=== PATIENT | female | born 1950 | race Caucasian/White ===

== ENCOUNTER 2018-11-26 12:18 | Inpatient (IN) | payer OTHER, MEDICAID ==
[~2018-11-26] VITALS: Ht 165.1 cm; Wt 85.7 kg
[2018-11-26 12:36] VITALS: BP_SYST 156
--- NOTE | 2018-11-26 12:45 | NUR ---
Patient to ER bed 04 to gown for evaluation. Side rails up. Report given to Jaylene.
--- NOTE | 2018-11-26 12:48 | NUR ---
Pt AAOx2 presents to ED via BLS from [facility] for medical clearance prior to placement to [place]. Per [facility] staff, pt has been refusing treatment and care at their facility and wishes to leave without safe plan of care. PCP Dr. Ross aware. Pt has not yet been accepted to [place]. Denies complaints at this time, but is very irritable. Skin pink dry and warm, breathing even and unlabored. Pt SaO2 88% on RA. Pt hyperverbal and states "Stop asking me if I can breathe! I'm breathing fine! Let me live my life my way!" Hx of COPD. No other injuries/complaints per pt/noted. Will continue to monitor.
--- NOTE | 2018-11-26 12:48 | NUR ---
Note undone in EDM - 11/26/18 at 1348 by [email or web address] Pt AAOx4 presents to ED via BLS from [facility] for medical clearance prior to placement to [place]. Per [facility] staff, pt has been refusing treatment and care at their facility and wishes to leave without safe plan of care. PCP Dr. Ross aware. Pt has not yet been accepted to [place]. Denies complaints at this time, but is very irritable. Skin pink dry and warm, breathing even and unlabored. Pt SaO2 88% on RA. Pt hyperverbal and states "Stop asking me if I can breathe! I'm breathing fine! Let me live my life my way!" Hx of COPD. No other injuries/complaints per pt/noted. Will continue to monitor.
[2018-11-26] MEDS ORDERED: DOCU-144 PO (13:01)
[2018-11-26] MEDS ORDERED: BENZ0.5T43 PO (13:01)
[2018-11-26] MEDS ORDERED: NOR10 PO (13:01)
[2018-11-26] MEDS ORDERED: DIA250 PO (13:01)
[2018-11-26] MEDS ORDERED: RISP0.253 PO (13:01)
--- NOTE | 2018-11-26 13:02 | NUR ---
Medication reconciliation completed with information provided by Brian Diaz. Any prior medication reconciliation on file was reviewed and corrected.
[2018-11-26 13:04] LABS: BILIRUBIN,URINE NEGATIVE (NEGATIVE); BLOOD, URINE TRACE (NEGATIVE); CLARITY/URINE CLEAR (CLEAR); COLOR,URINE YELLOW (YELLOW); GLUCOSE,URINE NEGATIVE (NEGATIVE); KETONES,URINE NEGATIVE (NEGATIVE); LEUKOCYTE ESTERASE ,URINE 3+ (NEGATIVE); NITRITE, URINE NEGATIVE (NEGATIVE); PH,URINE 5.5 (5.0-8.0); PROTEIN URINE NEGATIVE (NEGATIVE)
[2018-11-26 13:09] LABS: BACTERIA,URINE FEW /HPF (None Seen); WBC,URINE 80-100 /HPF (0-3)
[2018-11-26 13:13] LABS: BARBITURATE, URINE NEGATIVE (NEG <=200); BENZODIAZEPINE, URINE NEGATIVE (NEG <=150); CANNABINOID, URINE NEGATIVE (NEG <=50); COCAINE, URINE NEGATIVE (NEG <=150); METHAMPHETAMINES SCREEN,URINE NEGATIVE (NEG <=500); OPIATE, URINE NEGATIVE (NEG <=100); PHENCYCLIDINE SCREEN,URINE NEGATIVE (NEG <=25); UR TRICYCLIC ANTIDEPRESSANTS NEGATIVE (NEG <=300); URINE AMPHETAMINE NEGATIVE (NEG <=500); URINE METHADONE NEGATIVE (NEG <=200); URINE OXYCODONE SCREEN NEGATIVE (NEG <=100); URINE PROPOXYPHENE SCREEN NEGATIVE (NEG <=300)
[2018-11-26 13:21] LABS: BASOPHILS # (AUTO) 0.1 K/uL (0.0-0.2); BASOPHILS % (AUTO) 0.6 % (0.0-2.0); EOSINOPHILS # (AUTO) 0.2 K/uL (0.0-0.4); EOSINOPHILS % (AUTO) 1.7 % (0.0-4.0); HEMATOCRIT 43.7 % (36-48); HEMOGLOBIN 14.4 g/dL (12.0-16.0); LYMPHOCYTES # (AUTO) 2.3 K/uL (1.0-5.5); LYMPHOCYTES % (AUTO) 23.2 % (20.5-51.5); MEAN CORPUSCULAR HEMOGLOBIN 31 pg (27-31); MEAN CORPUSCULAR HGB CONC 33 % (32-36); MEAN CORPUSCULAR VOLUME 94 fL (79.0-98.0); MONOCYTES % (AUTO) 9.7 % (1.7-9.3); NEUTROPHILS # (AUTO) 6.5 K/uL (1.8-7.7); NEUTROPHILS % (AUTO) 64.8 % (40.0-70.0); PLATELET COUNT (AUTO) 268 K/uL (130-430); RED BLOOD CELL COUNT(AUTO) 4.67 MIL/uL (4.2-6.2); RED CELL DISTRIBUTION WIDTH 13.5 % (9.0-15.0)
[2018-11-26 13:34] LABS: CALCIUM 9.1 mg/dL (8.4-11.0); CHLORIDE 99 mmol/L (98-107); CREATININE 0.59 mg/dL (0.55-1.30); GLUCOSE 102 mg/dL (70-99); POTASSIUM 3.9 mmol/L (3.5-5.1); SODIUM SERUM 133 mmol/L (136-145); UREA NITROGEN, BLOOD 7 mg/dL (8-21)
[2018-11-26 13:35] LABS: ANION GAP < 3 (5-15); GFR AFRICAN AMERICAN 130 mL/min (>90)
[2018-11-26 13:40] LABS: ALANINE AMINOTRANSFERASE 25 U/L (12-78); ALBUMIN 2.8 g/dL (3.4-4.8); ASPARTATE AMINOTRANSFERASE 25 U/L (10-37); TOTAL BILIRUBIN 0.7 mg/dL (0.0-1.0)
[2018-11-26 13:41] LABS: ACETAMINOPHEN < 1 ug/mL (1-30); ALCOHOL, BLOOD < 3 mg/dL (<10)
--- NOTE | 2018-11-26 13:42 | NUR ---
received report from VALARIE Whtie. patient in bed, O2Sat at 84-85%. Patient denies SOB and states is breathing fine and does not want oxygen. Patient states needed to lay on side and is fine. Patient states smells "pot" but does not use it. Patient agitated. Will continue to monitor.
[2018-11-26 14:00] LABS: CHOLESTEROL 130 mg/dL (<200); HDL CHOLESTEROL 50 mg/dL (>55); LDL CHOLESTEROL 68 mg/dL (<100); TRIGLYCERIDES 49 mg/dL (30-150)
--- NOTE | 2018-11-26 14:35 | NUR ---
patient refused IV, blood draw and ABG. Dr. Mulligan aware.
--- NOTE | 2018-11-26 15:39 | NUR ---
ADMISSION NOTE Received patient from ER via awilda, received report from Christopher SHEPPARD. Patient admitted with diagnosis of COPD and UTI. Patient oriented to hospital routine, call light, toileting and safety-patient verbalized understanding.
--- NOTE | 2018-11-26 15:39 | NUR ---
INITIAL NOTE REPORT RECEIVED BY MARLYN. PT AWAKE, AOX2. PT BELONGINGS AT BEDSIDE. PT EDUCATED ON IMPORTANCE OF IV ACCESS, PT REFUSING IV ACCESS AT THIS TIME. DENIES ANY PAIN OR DISCOMFORT. CALL LIGHT WITHIN REACH, BED IN LOW AND LOCKED POSITION WITH BED ALARM ON.
[2018-11-26] MEDS ORDERED: risperiDONE 0.25 MG TABLET (RisperDAL) PO ONE (15:45)
[2018-11-26] MEDS ORDERED: LevALBUTEROL HCL 1.25 MG/0.5 ML *CONC.* VIAL.NEB (XOPENEX CONC.) INH PRN (15:45)
--- NOTE | 2018-11-26 15:45 | NUR ---
Patient will be admitted to care of Dr. Ross. Admitted to med/surg unit. Will go to room 121b. Belongings list completed. Summary report printed. Report will be given at bedside.
--- NOTE | 2018-11-26 15:48 | NUR ---
Care endorsed and report given to VALARIE Kingston in med/surg. All questions answered.
[2018-11-26 15:54] VITALS: BP_SYST 148
--- NOTE | 2018-11-26 16:06 | NUR ---
CONSULTATION PAGED REASON FOR CONSULTATION:SCHIZOPHERNIA WAS CONSULT CALLED?Y PERSON WHO WAS NOTIFIED:JESSICA CONSULTING PHYSICIAN:NILES RAIN RELIGION INSTRUCTOR SPECIALTY:PSYCH RELIGION INSTRUCTOR PHONE NUMBER:[phone] REQUESTING PHYSICIAN:COTY FORD
[2018-11-26 16:33] VITALS: BP_SYST 148
--- NOTE | 2018-11-26 17:39 | NUR ---
RN ROUNDS PT RESTING, NO ACUTE DISTRESS NOTED. BREATHING EVEN AND UNLABORED.
--- NOTE | 2018-11-26 19:27 | NUR ---
CLOSING NOTE PT RESTING IN BED. NO ACUTE DISTRESS NOTED. BREATHING EVEN AND UNLABORED. CALL LIGHT WITHIN REACH, BED IN LOW AND LOCKED POSITION WITH BED ALARM ON. WILL CONTINUE TO MONITOR UNTIL PATIENT CARE IS ENDORSED TO PROGRAM PRODUCTION SPECIALIST RN.
--- NOTE | 2018-11-26 19:30 | NUR ---
Opening Notes Patient sitting at bedside. AOx2 and able to verbalize needs. Patient refusing IV insertion. Ambulatory with a steady gait to the bathroom. Patient periodically confused. Oriented the patient to the room and use of the call light. Refusing bed alarm. Call light placed within reach. Will monitor on rounds.
[2018-11-26 20:00] VITALS: BP_SYST 136
[2018-11-26] MEDS: BENZTROPINE MESYLATE 1 MG TABLET PO SCH (20:45)
[2018-11-26] MEDS: SULFAMETHOXAZOLE/TRIMETHOPR DS 1 TABLET PO SCH (20:45)
[2018-11-26] MEDS: ENOXAPARIN SODIUM 40 MG/0.4 ML SYRINGE SUBCUT SCH (20:46)
[2018-11-26] MEDS: LevALBUTEROL HCL 1.25 MG/0.5 ML *CONC.* VIAL.NEB (XOPENEX CONC.) INH SCH (23:00)
--- NOTE | 2018-11-26 23:15 | NUR ---
Patient is ambulatory in the room and returning to sit at the edge of the bed. Brought patient some crackers for snack. Very irritable and wants to be left alone. Will cont to monitor for any change in condition.
[2018-11-27 01:47] VITALS: BP_SYST 123
--- NOTE | 2018-11-27 02:17 | NUR ---
Patient resting in bed. No appearance of pain or difficulty breathing.
--- NOTE | 2018-11-27 04:13 | NUR ---
No change in condition. Patient in bed resting. Call light within reach.
--- NOTE | 2018-11-27 04:14 | NUR ---
Patient resting in bed. No complaints of pain or respiratory distress.
--- NOTE | 2018-11-27 06:35 | NUR ---
Closing Notes Patient in bed resting comfortably. No pain or respiratory distress. Call light within reach. All needs have been met and safety precautions in place. Will endorse care to oncoming shift.
[2018-11-27] MEDS: LevALBUTEROL HCL 1.25 MG/0.5 ML *CONC.* VIAL.NEB (XOPENEX CONC.) INH SCH ×3 (07:00→23:50)
[2018-11-27 07:40] VITALS: BP_SYST 131
--- NOTE | 2018-11-27 08:00 | NUR ---
PT AWAKE, AOX2. CONFUSED, BUT ABLE TO VERBALIZED BASIC NEEDS. DENIES ANY PAIN OR DISCOMFORT. REFUSED IV INSERTION. CALL LIGHT WITHIN REACH, BED LOCKED AT THE LOWEST POSITION WITH BED ALARM ON. WILL CONTINUE TO MONITOR.
[2018-11-27] MEDS: risperiDONE 0.25 MG TABLET (RisperDAL) PO SCH (08:20)
[2018-11-27] MEDS: acetaZOLAMIDE 250 MG TABLET (DIAMOX) PO SCH ×2 (08:20→08:27)
[2018-11-27] MEDS: amLODIPine BESYLATE 10 MG TABLET PO SCH ×2 (08:22→08:27)
[2018-11-27] MEDS: SULFAMETHOXAZOLE/TRIMETHOPR DS 1 TABLET PO SCH ×2 (08:22→21:00)
[2018-11-27] MEDS: BENZTROPINE MESYLATE 1 MG TABLET PO SCH ×2 (08:22→21:00)
[2018-11-27] MEDS: DOCUSATE SODIUM 100 MG CAPSULE PO SCH (08:22)
--- NOTE | 2018-11-27 10:31 | NUR ---
Nutrition Update Tommy Scale 16 noted. Pt admitted for UTI and COPD. Diet: regular BMI: 31.6 kg/m2 RD to follow per nutrition care standards.
--- NOTE | 2018-11-27 11:31 | NUR ---
PATIENT IS SEEN WALKING TO THE BATHROOM. NO SIGNS OF DISTRESS NOTED.
[2018-11-27 12:27] VITALS: BP_SYST 127
--- NOTE | 2018-11-27 13:48 | NUR ---
PATIENT IS RESTING, TOLERATING WITHOUT DISTRESS.
--- NOTE | 2018-11-27 14:44 | NUR ---
PT AWAKE, AOX2. CONFUSED, BUT ABLE TO VERBALIZED BASIC NEEDS. DENIES ANY PAIN OR DISCOMFORT. REFUSED IV INSERTION. CALL LIGHT WITHIN REACH, BED IN LOW AND LOCKED POSITION WITH BED ALARM ON. Addendum: 11/27/18 at 1446 by Dario Ann RN WRONG PATIENT.
--- NOTE | 2018-11-27 14:44 | NUR ---
PT AWAKE, AOX2.PT BELONGINGS AT BEDSIDE. PT EDUCATED ON IMPORTANCE OF IV ACCESS, PT REFUSING IV ACCESS AT THIS TIME. DENIES ANY PAIN OR DISCOMFORT. CALL LIGHT WITHIN REACH, BED IN LOW AND LOCKED POSITION WITH BED ALARM ON. Addendum: 11/27/18 at 1444 by Dario Ann RN WRONG PATIENT.
--- NOTE | 2018-11-27 16:16 | NUR ---
PATIENT IS RESTING IN BED, NO SIGNS OF DISTRESS NOTED.
[2018-11-27 16:24] VITALS: BP_SYST 133
--- NOTE | 2018-11-27 16:34 | NUR ---
Dietitian Recommendations * Recommend continuing regular diet * Encourage increase PO intakes LP, RD Please refer to Nutrition Assessment for details. Addendum: 11/27/18 at [address] Amended: Links added.
--- NOTE | 2018-11-27 18:16 | NUR ---
PATIENT IS EATING DINNER, TOLERATED WITHOUT DISTRESS.
[2018-11-27 19:19] VITALS: BP_SYST 133
--- NOTE | 2018-11-27 19:30 | NUR ---
initial notes: pt is finish eating dinner, stable. sitting on edge of bed. no pain. no iv access. pt is refusing to have iv access according to day rn. needs attended, call light in reach. low bed position. will follow-up.
--- NOTE | 2018-11-27 20:30 | NUR ---
pt refused all her medication tonight, pt stated she took all her medication this morning and she don't want to take it again.
[2018-11-27] MEDS: ENOXAPARIN SODIUM 40 MG/0.4 ML SYRINGE SUBCUT SCH (21:00)
--- NOTE | 2018-11-27 21:00 | NUR ---
pt ambulate to bathroom, steady gait, back to bed , needs attended.
--- NOTE | 2018-11-27 22:00 | NUR ---
pt is in bed, watching tv. no pain. no sob. stable. needs attended.
[2018-11-27 23:38] VITALS: BP_SYST 159
--- NOTE | 2018-11-28 00:15 | NUR ---
still awake, watching tv. ambulate to bathroom, steady gait. back to bed, no pain. needs attended.
--- NOTE | 2018-11-28 02:50 | NUR ---
sleeping, comfortable to her side, non labored breathing, stable.
--- NOTE | 2018-11-28 04:18 | NUR ---
sleeping, comfortable, non labored breathing, stable. no pain. will follow-up.
--- NOTE | 2018-11-28 06:18 | NUR ---
awake, alert, no pain, ambulate to bathroom, steady gait, no sob. stable.
[2018-11-28] MEDS: LevALBUTEROL HCL 1.25 MG/0.5 ML *CONC.* VIAL.NEB (XOPENEX CONC.) INH SCH ×2 (07:00→23:00)
--- NOTE | 2018-11-28 07:26 | NUR ---
closing: pt is on bed, alert, awake, no pain. stable the whole shift. ambulatory with steady gait. needs attended the whole shift. bedside report given to am rn.
--- NOTE | 2018-11-28 07:30 | NUR ---
Opening Notes Received patient sitting comfortably in bed. Alert, awake and verbally responsive. Denies any pain or discomfort at this time. Respiration even and unlabored. Discussed plan of care, patient verbalized understanding. Call light within the reach. Will continue to monitor.
[2018-11-28] MEDS: BENZTROPINE MESYLATE 1 MG TABLET PO SCH ×2 (08:37→21:00)
[2018-11-28] MEDS: acetaZOLAMIDE 250 MG TABLET (DIAMOX) PO SCH ×2 (08:37→08:43)
[2018-11-28] MEDS: DOCUSATE SODIUM 100 MG CAPSULE PO SCH ×2 (08:37→08:43)
[2018-11-28] MEDS: SULFAMETHOXAZOLE/TRIMETHOPR DS 1 TABLET PO SCH ×2 (08:37→21:00)
[2018-11-28] MEDS: risperiDONE 0.25 MG TABLET (RisperDAL) PO SCH (08:37)
[2018-11-28] MEDS: amLODIPine BESYLATE 10 MG TABLET PO SCH (08:38)
--- NOTE | 2018-11-28 08:40 | NUR ---
docusate and diamox refused Patient refused to take Docusate and Diamox, explained risks and benefits patient still refused.
[2018-11-28 09:08] VITALS: BP_SYST 121
--- NOTE | 2018-11-28 09:55 | NUR ---
RN ROUNDS Patient resting well, watching tv. Alert, awake and verbally responsive. Denies any pain or discomfort at this time. Call light within the reach.
--- NOTE | 2018-11-28 11:50 | NUR ---
Rn ROUNDS Patient sitting in her bed noted talking to herself, asked patient who she is talking to, gets agitated when asked who is she speaking to, denies any pain or discomfort at this time. Respiration even and unlabored. Call light within the reach.
--- NOTE | 2018-11-28 12:54 | NUR ---
Wire Fence Erector: Met with pt. re. referral GURDEEP SURVEY INTERVIEWER met with pt. who was sitting on the edge of her bed. Rn. was present. Pt. was speaking however she was not clear 100% of the time. Pt was able to participate in this interview. Pt. confirmed that she was from [facility] and wanted to return upon discharge. She stated she had been there for about 2 years. When SURVEY INTERVIEWER confirmed her emergency contact as stated in the facesheet, "Damion Vela " (Greg. JanesrJudi) pt. became very upset and stated, " No ! NO contact! No!" SURVEY INTERVIEWER told her she would fix the contact sheet. PT. went on to say she had been in a foster home. But when asked, she did not have any other contacts to list. Pt. confirmed that she was Dx with Schizophrenia eversince she was younger. She stated she is no longer taking medication for this Dx. In the file, SURVEY INTERVIEWER read Dr. Avery was consulted on this pt. as well as one of the meds pt. was taking was a psycotropic med, Risperidane. SURVEY INTERVIEWER will remain available as needed. Addendum: 11/28/18 at 1316 by Sierra Solis SURVEY INTERVIEWER Wire Fence Erector: Follow up SURVEY INTERVIEWER called Brian Diaz and spoke to web content coordinator, Rashmi who confirmed pt. is seeing a psyc. Dr. Armstrong for Schizophrenia and is indeed taking Risperidane. Rashmi also stated pt. is just recently talking about leaving [facility],but when they try to discuss other locations, pt. does not want to discuss further. Rashmi Faith stated pt. came from a B/C and Mirian runs it. SURVEY INTERVIEWER stated she will change this name as a contact as it upset pt. SURVEY INTERVIEWER will remain available as needed.
--- NOTE | 2018-11-28 13:27 | NUR ---
RN ROUNDS Patient lying comfortably in her bed with respiration even and unlabored. Remain to be alert, awake and verbally responsive. Denies any pain or discomfort at this time. Call light within easy reach.
--- NOTE | 2018-11-28 13:45 | NUR ---
Dr. Ross Rounds Seen and examined by MD, will follow-up for any new orders.
--- NOTE | 2018-11-28 15:29 | NUR ---
RN ROUNDS Patient lying comfortably in bed, resting. Denies any pain or discomfort at this time. Call light within the reach.
[2018-11-28 16:28] VITALS: BP_SYST 126
--- NOTE | 2018-11-28 17:50 | NUR ---
Eating Dinner Patient able to feed herself independently with tray set-up, able to tolerate diet. Denies any pain or discomfort. Will continue to monitor.
--- NOTE | 2018-11-28 18:52 | NUR ---
Closing Notes Patient lying comfortably in her bed. Remain to be alert, awake and verbally responsive. Respiration even and unlabored. Denies any pain or discomfort at this time. Bed at lowest position, bed alarm on. Call light within easy reach. Will endorse to the next shift.
--- NOTE | 2018-11-28 19:45 | NUR ---
initial note Received sitting at side of bed awake, alert & oriented to name & date. No apparent distress noted. Denies pain or discomfort. Vital signs stable. No IV access. MD aware. Able to ambulate without assist. Instructed on use of call light & to notify staff if in need of assistance. Verbalized understanding. Bed in low, locked position.
[2018-11-28 20:00] VITALS: BP_SYST 128
[2018-11-28] MEDS: ENOXAPARIN SODIUM 40 MG/0.4 ML SYRINGE SUBCUT SCH (21:00)
[2018-11-29 00:15] VITALS: BP_SYST 126
--- NOTE | 2018-11-29 01:49 | NUR ---
Resting with eyes closed, easily aroused. No respiratory distress noted. No c/o pain or discomfort. Call light within reach.
--- NOTE | 2018-11-29 01:50 | NUR ---
Resting in bed with eyes closed easily aroused. No c/o pain or discomfort. Respirations even and unlabored. Call light within reach.
--- NOTE | 2018-11-29 05:20 | NUR ---
CONSULTATION PAGED/CALLED Reason for Consultation: SCHIZOPHRENIA Person Who was Notified: MARTI Consulting Physician: DR. MILAN Collection Development Librarian Specialty: PSYCH Ordering Physician: DR. DAVID
--- NOTE | 2018-11-29 07:23 | NUR ---
Closing note Resting in bed with eyes closed, easily aroused. No c/o pain or discomfort. Respirations even and unlabored. All needs attended to. Will give report to oncoming shift RN.
--- NOTE | 2018-11-29 07:36 | NUR ---
Opening Notes SBAR report received from restaurant shift leader, patient received lying comfortably in bed, eyes closed, no moaning or grimacing noted. Respiration even and unlabored. Call light within the reach. Bed alarm on. Bed at lowest position. Will continue to monitor.
[2018-11-29 08:15] VITALS: BP_SYST 157
[2018-11-29] MEDS: risperiDONE 0.25 MG TABLET (RisperDAL) PO SCH (08:35)
[2018-11-29] MEDS: SULFAMETHOXAZOLE/TRIMETHOPR DS 1 TABLET PO SCH ×2 (08:35→21:18)
[2018-11-29] MEDS: BENZTROPINE MESYLATE 1 MG TABLET PO SCH ×2 (08:35→21:18)
[2018-11-29] MEDS: acetaZOLAMIDE 250 MG TABLET (DIAMOX) PO SCH (08:36)
[2018-11-29] MEDS: amLODIPine BESYLATE 10 MG TABLET PO SCH ×2 (08:36→08:39)
[2018-11-29] MEDS: DOCUSATE SODIUM 100 MG CAPSULE PO SCH (08:36)
--- NOTE | 2018-11-29 09:00 | NUR ---
Refused Diamox, Norvasc and DSS Patient educated on drug usage and its potential side effects, patient verbalized understanding, medications given as ordered, well tolerated, but refused to take Diamox, Norvasc and DSS, explained risks and benefits. Call light within the reach.
--- NOTE | 2018-11-29 11:31 | NUR ---
RN ROUNDS Patient resting well in bed, alert, awake and verbally responsive. Denies any pain or discomfort at this time. Call light within the reach.
--- NOTE | 2018-11-29 11:38 | NUR ---
F/U CONSULT PSYCH SCHIZOPHRENIA DR MILAN [phone] S/W [place] OFFICE
[2018-11-29 12:17] VITALS: BP_SYST 134
--- NOTE | 2018-11-29 13:30 | NUR ---
RN ROUNDS Patient currently lying comfortably in her bed, respiration even and unlabored. Alert, awake and verbally responsive. Denies any pain or discomfort at this time. Call light within the reach.
--- NOTE | 2018-11-29 15:12 | NUR ---
RN ROUNDS Remain to be alert, awake and verbally responsive. Denies any pain or discomfort. Call light within the reach.
[2018-11-29 16:05] VITALS: BP_SYST 127
--- NOTE | 2018-11-29 16:21 | NUR ---
Social Service/Discharge Planning: BRASS AND WIND INSTRUMENT REPAIRER has received order for dc to [facility], pt has pending psychiatric evaluation. BRASS AND WIND INSTRUMENT REPAIRER has contacted CM Director to discuss transfer to [facility] without psychiatric evaluation. BRASS AND WIND INSTRUMENT REPAIRER will await input from CM Director. BRASS AND WIND INSTRUMENT REPAIRER alerted pt's nurse that pt has psychiatric consult and that pt has not been seen by psychiatrist. Pt has been accepted at [facility] room 58A.
--- NOTE | 2018-11-29 17:33 | NUR ---
RN ROUNDS Patient denies any pain or discomfort. Remain to be alert, awake and verbally responsive. Call light within the reach.
--- NOTE | 2018-11-29 18:27 | NUR ---
With discharge order to transfer to [facility] in [place] patient has room assigned , 51:50 that was documented on 11[facility] by Dr[facility] Zhao and still valid till 11/29/2018; nursing managing supervisor Sera spoke to home health care social worker Krystal to verify if we can transfer with that documentation and said yes, called [place] [facility] spoke to Jhony and said bed is available but we cannot transfer the patient until bed rental is pick in the room by the company, Dr. Apodacaium was informed by the nursing managing supervisor Angela.
--- NOTE | 2018-11-29 19:01 | NUR ---
Closing Notes Patient remain to be alert, awake and verbally responsive. Denies any pain or discomfort at this time. Respiration even and unlabored. Call light within the reach. Will endorse to the next shift.
--- NOTE | 2018-11-29 19:39 | NUR ---
Report given to [facility] Called and spoke to RN Lazaro, report given regarding patient.
[2018-11-29 19:53] VITALS: BP_SYST 159
--- NOTE | 2018-11-29 20:00 | NUR ---
CALLED [facility]: CALLED AND TALKED WITH YANNA ON [phone] , INFORMED HER THAT PTS 5150WAS SIGNED ON 11/26/18 AT 1050 AM , AND ITS TODAY MORNING , YANNA SAID ITS OK TO TRANSFER , ONCE PT REACHED [facility] THEY WILL MAKE NEW ONE.
--- NOTE | 2018-11-29 20:30 | NUR ---
[facility]ELINA [facility] CALLED : NABEEL DIRECTOR OF [facility] CALLED MAIN CHARGE NURSE AND REQUESTED TO CALL [facility] CRU[facility] AND REQUEST TO FAX PROGRESS NOTE FROM DR MILAN , CALLED CELINA CRUZ AND TALKED WITH EKTA SHEPPARD , PER RN MEDICAL RECORD IS CLOSED AND IT WILL BE OPEN ONLY TOMORROW MORNING AT 8:30 ;AND RN ASKED TO CALL MEDICAL RECORD AT THAT TIME .NOTIFIED MAIN CHARGE NURSE
[2018-11-29 21:00] VITALS: BP_SYST 129
--- NOTE | 2018-11-29 21:00 | NUR ---
DR DAVID CALLED : DR DAVID CALLED THE UNIT TO GET UPDATE ON THE TRANSFER , STATED HE IS WAITING FOR THE PT AT [facility] , NOTIFIED THAT AMBULANCE IS ONLY AVAILABLE BY 2214 , NOTIFIED THAT 5150 IS TO DAY MORNING , STATED HE TALKED WITH DR MILAN AND STILL NOT , OKAY TO TRANSFER PT WITH THE SAME 5150 .
--- NOTE | 2018-11-29 21:20 | NUR ---
FAMILY CALLED : CALLED OWEN DUONG SR ON [phone] , NO ONE ANSWERED CALL , LEFT MESSAGE TO CALL BACK AT [phone] , CALLED OWEN DUONG JR ON [phone] , TALKED WITH HIM INFORMED RHODA WHITTEN THAT PT WILL BE TRANSFERRING TO [facility] PER ORDER . AMBULANCE WILL BE HERE TO ROUTING EQUIPMENT TENDER BY 2215 PM . 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 PRIMARY RN NOTIFIED
[2018-11-29] MEDS: ENOXAPARIN SODIUM 40 MG/0.4 ML SYRINGE SUBCUT SCH (21:21)
--- NOTE | 2018-11-29 21:47 | NUR ---
VITAL SIGNS : TRIED TO DO VITALS SIGNS AGAIN , PT REFUSED TO CHECK STATED" I AM FINE " INFORMED HER THAT BEFORE SHE IS LEAVING RN HAS TO MAKE SURE THAT HER BP AND TEMP ARE NORMAL PT STATED "I AM FIVE TIMES NORMAL THAN ANYONE, I DON'T WANT ANYONE TO CHECK MY BP ". PT REFUSED TO CHECK THE VITALS SIGNS AT THIS TIME .
--- NOTE | 2018-11-29 22:48 | NUR ---
PT FOR DISCHARGE TO THE [facility]. PT REFUSED FOR VITAL SIGN TO BE TAKEN .PT IS WEARING OWN.NO IV ACCESS .REGULAR PANT AND BLOUSE. REPORT GIVEN TO THE ANBULANCE MERCHANDISE FLOW ASSOCIATE S. I D BAND REMOVED. TEMPERARY ID PUT ON PT . ALL BELONGINGS SEND WITH THE PATIENT .DISCHARGE INSTRUCTION AND PAPERWORKS GIVEN PARAMEDICS.PT REFUED TO SIGN THE DISCHARGE INSTRUCTION PT HAVE PSYCHOSIS. PT STABLE CONDITION . PT WHEELED OUT VIA GURNEY.
--- NOTE | 2018-11-30 16:20 | NUR ---
Social Service Note: WEB SOFTWARE ENGINEER reviewed discharge disposition, upon review, WEB SOFTWARE ENGINEER found that pt went to psych facility upon discharge. WEB SOFTWARE ENGINEER received call from power house control room operator on 11/29/18-180, WEB SOFTWARE ENGINEER advised that pt needed a valid 5150 and psychiatric evaluation to be transferred to psychiatric unit. WEB SOFTWARE ENGINEER alerted CM Director of phone call with power house control room operator.
== END 2018-11-29 22:48 | DRG 191 ==
LOC: SED 12:18 → SMU 14:50
PROVIDERS: ADMIT Family Medicine; ATTEND Family Medicine
DX: J44.1 Chronic obstructive pulmonary disease with (acute) exacerbation (principal); N39.0 Urinary tract infection, site not specified; E44.0 Moderate protein-calorie malnutrition; F20.9 Schizophrenia, unspecified; F17.200 Nicotine dependence, unspecified, uncomplicated; I10 Essential (primary) hypertension; G20 Parkinson's disease; F31.9 Bipolar disorder, unspecified; M19.90 Unspecified osteoarthritis, unspecified site; Z88.0 Allergy status to penicillin; Z68.31 Body mass index [BMI] 31.0-31.9, adult; Z79.899 Other long term (current) drug therapy
CPT/HCPCS: 36415; 71045; 80053; 80061; 80307; 81000-TC; 83036; 85025; 85379; 87081; 87086; 99285; G0480; G0481; G0482; J1650; J7612

== ENCOUNTER 2018-12-08 01:36 | Inpatient (IN) | payer OTHER, MEDICAID ==
[~2018-12-08] VITALS: Ht 165.1 cm; Wt 84.8 kg
[2018-12-08] VITALS (8 sets, daily range): BP systolic 129–154
[~2018-12-08 01:36] MED LIST: BENZ0.5T43 PO; DIA250 PO; DOCU-144 PO; NOR10 PO; RISP0.253 PO
--- NOTE | 2018-12-08 02:00 | NUR ---
Pt BIB BLS from [facility], accompanied accompanied by Undercollar MakerSheriff Don Martinez, on a 5150 r/t endangerment to herself. Per 5150, pt has been sitting outside in the cold since 7am yesterday and has been refusing to take her medications. As written on the 5150, pt believes she is an orphan and [facility] to go back to the orphanage. Pt arrives AAOx2 with a calm and cooperative demeanor, denies SI/HI, denies A/V hallucinations. Pt talkative with scattered thought process. Patient placed on suicide precautions. Patient placed in room within close proximity to nurses' station for closer observation and monitoring. All clothing removed, placed in hospital gown. Metal detector wand used to further screen patient of any potential hazardous belongings. All belongings inventoried, placed in bags and removed from room. Cabinets locked. BP and pulse oximeter cords, and medical transcription editor leads removed.
--- NOTE | 2018-12-08 02:00 | NUR ---
Patient to ER bed 5 to gown for evaluation. Side rails up.
--- NOTE | 2018-12-08 02:08 | NUR ---
Dr. Thacker at bedside.
--- NOTE | 2018-12-08 02:14 | NUR ---
Security at bedside for wanding.
--- NOTE | 2018-12-08 02:30 | NUR ---
spikemaking supervisor notified of 5150 and optical designer requested.
--- NOTE | 2018-12-08 02:40 | NUR ---
Lab at bedside.
[2018-12-08 02:47] LABS: BILIRUBIN,URINE NEGATIVE (NEGATIVE); CLARITY/URINE CLEAR (CLEAR); COLOR,URINE YELLOW (YELLOW); GLUCOSE,URINE NEGATIVE (NEGATIVE); KETONES,URINE NEGATIVE (NEGATIVE); LEUKOCYTE ESTERASE ,URINE 1+ (NEGATIVE); NITRITE, URINE NEGATIVE (NEGATIVE); PROTEIN URINE TRACE (NEGATIVE)
[2018-12-08 02:51] LABS: BLOOD, URINE TRACE (NEGATIVE)
[2018-12-08 02:52] LABS: BASOPHILS % (AUTO) 0.2 % (0.0-2.0); EOSINOPHILS # (AUTO) 0.1 K/uL (0.0-0.4); EOSINOPHILS % (AUTO) 0.9 % (0.0-4.0); HEMOGLOBIN 15.6 g/dL (12.0-16.0); LYMPHOCYTES # (AUTO) 1.7 K/uL (1.0-5.5); LYMPHOCYTES % (AUTO) 14.5 % (20.5-51.5); MEAN CORPUSCULAR HEMOGLOBIN 31 pg (27-31); MEAN CORPUSCULAR HGB CONC 33 % (32-36); MEAN CORPUSCULAR VOLUME 94 fL (79.0-98.0); MONOCYTES # (AUTO) 0.9 K/uL (0.0-1.0); MONOCYTES % (AUTO) 7.6 % (1.7-9.3); NEUTROPHILS # (AUTO) 9.3 K/uL (1.8-7.7); NEUTROPHILS % (AUTO) 76.8 % (40.0-70.0); PLATELET COUNT (AUTO) 308 K/uL (130-430); RED BLOOD CELL COUNT(AUTO) 4.98 MIL/uL (4.2-6.2); RED CELL DISTRIBUTION WIDTH 13.4 % (9.0-15.0); WHITE BLOOD COUNT (AUTO) 12.1 K/uL (4.8-10.8)
[2018-12-08 03:16] LABS: PROTHROMBIN TIME 9.9 SECS (9.5-12.5)
[2018-12-08 03:17] LABS: BARBITURATE, URINE NEGATIVE (NEG <=200); BENZODIAZEPINE, URINE NEGATIVE (NEG <=150); CANNABINOID, URINE NEGATIVE (NEG <=50); COCAINE, URINE NEGATIVE (NEG <=150); METHAMPHETAMINES SCREEN,URINE NEGATIVE (NEG <=500); OPIATE, URINE NEGATIVE (NEG <=100); PHENCYCLIDINE SCREEN,URINE NEGATIVE (NEG <=25); UR TRICYCLIC ANTIDEPRESSANTS NEGATIVE (NEG <=300); URINE AMPHETAMINE NEGATIVE (NEG <=500); URINE METHADONE NEGATIVE (NEG <=200); URINE OXYCODONE SCREEN NEGATIVE (NEG <=100); URINE PROPOXYPHENE SCREEN NEGATIVE (NEG <=300)
[2018-12-08 03:19] LABS: CREATININE 0.59 mg/dL (0.55-1.30); POTASSIUM 3.7 mmol/L (3.5-5.1)
[2018-12-08 03:30] LABS: BACTERIA,URINE MODERATE /HPF (None Seen)
[2018-12-08 03:31] LABS: HYALINE CASTS, URINE 0-10 /LPF (None Seen)
[2018-12-08 03:33] LABS: ALBUMIN 3.3 g/dL (3.4-4.8); THYROID STIMULATING HORMONE 1.5 uIu/mL (0.34-4.82); TOTAL BILIRUBIN 0.4 mg/dL (0.0-1.0)
[2018-12-08] MEDS ORDERED: LEVOFLOXACIN 500 MG TABLET PO ONE ×2 (03:45→04:45)
[2018-12-08] MEDS ORDERED: ZOLP5TAB2 PO (03:46)
[2018-12-08] MEDS ORDERED: NACL 0.9% 1,000 ML IV ONE (03:46)
[2018-12-08] MEDS ORDERED: DOCU-144 PO (03:49)
[2018-12-08] MEDS ORDERED: cefTRIAXone 1 GM IVPB PREMIX 50 ML IV ONE (04:00)
--- NOTE | 2018-12-08 04:00 | NUR ---
Informed pt that ER MD ordered IVFs and an antibiotic to treat her UTI. Pt becomes aggitated and refuses IV stating, "I have the right to refuse." Dr. Thacker notified.
--- NOTE | 2018-12-08 04:10 | NUR ---
Pt allows lab to perform venipuncture for blood Cx and Lactic acid, but continues to refuse IV.
--- NOTE | 2018-12-08 04:26 | NUR ---
Patient will be admitted to care of Dr. Ross. Admitted to Med/Surg unit. Will go to room 104A. Summary report printed. Report will be given at bedside.
--- NOTE | 2018-12-08 04:48 | NUR ---
ADMISSION: The patient, JALIL CARDONA, 68 y/o, F admitted by COTY DAVID MD, was given written information regarding hospital policies, unit procedures and contact persons. Ashvin, primary RN at bedside.
[2018-12-08] MEDS ORDERED: LEVOFLOXACIN 500 MG TABLET ONE (04:50)
--- NOTE | 2018-12-08 05:00 | NUR ---
PATIENT REFUSE IV INSERTION DR FRANKIE AMANDA IS AWARE .
--- NOTE | 2018-12-08 05:01 | NUR ---
ASSIST PATIENT OUT OF BED TO REST ROOM Ambulates with steady GAIT , D/O is @ the bedside for safety .
--- NOTE | 2018-12-08 05:02 | NUR ---
MRSA Collected & sent to lab .
--- NOTE | 2018-12-08 05:29 | NUR ---
CONSULTATION PAGED/CALLED Reason for Consultation: SCHIZOPHRENIC, BIPOLAR, SELF-HARM Person Who was Notified: MARTI Consulting Physician: DR. MILAN Angle Bender Specialty: PSYCH Ordering Physician: DR. DAVID
--- NOTE | 2018-12-08 07:45 | NUR ---
INITIAL NOTE BEDSIDE SBAR REPORT RECEIVED BY BUSINESS SERVICES CLERK RN. PT SITTING AT EDGE OF BED, DENIES ANY PAIN OR DISCOMFORT. PT REFUSING IV ACCESS AT THIS TIME, IS AWARE. CALL LIGHT WITHIN REACH, BED IN LOW AND LOCKED POSITION WITH BED ALARM ON. PT IS 5150.
--- NOTE | 2018-12-08 09:30 | NUR ---
RN ROUNDS PT RESTING IN BED, NO ACUTE DISTRESS NOTED, BREATHING EVEN AND UNLABORED.
--- NOTE | 2018-12-08 11:38 | NUR ---
RN ROUNDS ASSISTED PT TO RESTROOM, STEADY GAIT. PT PERFORMING ORAL HYGIENE. DENIES ANY DIZZINESS, OR DISCOMFORT. WILL CONTINUE TO MONITOR.
--- NOTE | 2018-12-08 12:35 | NUR ---
DR. FRANKIE AMANDA AT BEDSIDE EXAMINING PATIENT. INFORMED MD OF NEED OF PTS MED REC. MD TO CONTINUE CURRENT TREATMENT.
[2018-12-08] MEDS ORDERED: ZOLPIDEM TARTRATE 5 MG TABLET PO PRN (13:00)
[2018-12-08] MEDS ORDERED: LevALBUTEROL HCL 1.25 MG/0.5 ML *CONC.* VIAL.NEB (XOPENEX CONC.) INH PRN (13:00)
--- NOTE | 2018-12-08 13:30 | NUR ---
RN ROUNDS PT SITTING AT EDGE OF BED EATING LUNCH. PT DENIES ANY SOB, OR DISCOMFORT AT THIS TIME. PT ON ROOM AIR AND TOLERATING WELL.
[2018-12-08] MEDS: LevALBUTEROL HCL 1.25 MG/0.5 ML *CONC.* VIAL.NEB (XOPENEX CONC.) INH SCH (15:00)
--- NOTE | 2018-12-08 15:35 | NUR ---
REFUSED BREATHING TX EDUCATED PT ON USES AND PURPOSE OF BREATHING TREATMENT. PT REFUSING TREATMENT AT THIS TIME. PT SAYS SHE DOES NOT NEED IT. REINFORCED EDUCATION AND INFORMED PATIENT THAT TREATMENT IS AVAILABLE UPON HER REQUEST.
--- NOTE | 2018-12-08 17:49 | NUR ---
RN ROUNDS PT SITTING AT EDGE OF BED EATING DINNER. DENIES ANY SOB OR DISCOMFORT AT THIS TIME. PT TOLERATING WELL ON ROOM AIR.
--- NOTE | 2018-12-08 19:04 | NUR ---
CLOSING NOTE ASSISTED PT TO RESTROOM, STEADY GAIT. PT STILL REFUSING IV ACCESS. PT ON ROOM AIR TOLERATING WELL. DENIES ANY N/V/DIZZ OR DISCOMFORT. CALL LIGHT WITHIN REACH, BED IN LOW AND LOCKED POSITION WITH BED ALARM ON. WILL CONTINUE TO MONITOR UNTIL PT CARE IS ENDORSED TO SPORTS MANAGEMENT PROFESSOR RN. Addendum: 12/08/18 at 1906 by Aleisha Hubbard RN SAFETY PRECAUTIONS IN PLACE, PT REMAINS 5150.
--- NOTE | 2018-12-08 20:00 | NUR ---
RECIEVED REPORT, A/O/X/2-3, RESPIRATIONS EVEN AND UNLABORED, ROOM AIR,AMBULATES TO RESTROOM INDEPENDENTLY, VOIDING CLEAR YELLOW URINE, TOLERATED HS SNACK 100%, MD AWARE OF PATIENT NOT HAVING IV ACCESSIBILITY, PATIENT STATES SHE DOES NOT WANT TO BE STUCK, SKIN INTACT, DENIES PAIN, RESTING QUIETLY IN BED , WILL CONTINUE TO MONITOR,
[2018-12-08] MEDS: BENZTROPINE MESYLATE 1 MG TABLET PO SCH (21:34)
[2018-12-08] MEDS: risperiDONE 0.25 MG TABLET (RisperDAL) PO SCH (21:35)
--- NOTE | 2018-12-09 | NUR ---
RN ROUNDS RESTING QUIETLY IN BED WITH EYES CLOSED, EASILY AROUSED, AMBULATED TO RESTROOM, GAIT SLOW BUT STEADY, DENIES PAIN
[2018-12-09 00:46] VITALS: BP_SYST 118
--- NOTE | 2018-12-09 04:00 | NUR ---
RN ROUNDS AMBULATED TO RESTROOM,VOIDING CLEAR YELLOW URINE, DENIES PAIN, TOLERATING PO FLUIDS WELL
[2018-12-09 05:22] VITALS: BP_SYST 135
--- NOTE | 2018-12-09 07:00 | NUR ---
CLOSING NOTE UP @ BEDSIDE DOING AM CARE, CHEERFUL AND COOPERATIVE
--- NOTE | 2018-12-09 07:30 | NUR ---
INITIAL NOTE BEDSIDE SBAR REPORT RECEIVED BY SOUS CHEF RN. PT RESTING IN BED, NO ACUTE DISTRESS NOTED, BREATHING EVEN AND UNLABORED. NO IV ACCESS, PT STILL REFUSING, MD AWARE. PT REMAINS ON 5150. CALL LIGHT WITHIN REACH, BED IN LOW AND LOCKED POSITION WITH BED ALARM ON.
[2018-12-09 08:00] VITALS: BP_SYST 115
[2018-12-09] MEDS: ENOXAPARIN SODIUM 40 MG/0.4 ML SYRINGE SUBCUT SCH (09:00)
[2018-12-09] MEDS: DOCUSATE SODIUM 100 MG CAPSULE PO SCH ×2 (09:00→09:50)
--- NOTE | 2018-12-09 09:10 | NUR ---
MADE A F/U CALL TO PSYCH MD DR MILAN,.. SPOKE TO CONCHIS.
--- NOTE | 2018-12-09 09:42 | NUR ---
RN ROUNDS PT RESTING IN BED, NO ACUTE DISTRESS NOTED, BREATHING EVEN AND UNLABORED.
[2018-12-09] MEDS: amLODIPine BESYLATE 10 MG TABLET PO SCH (09:51)
[2018-12-09] MEDS: BENZTROPINE MESYLATE 1 MG TABLET PO SCH ×2 (09:51→21:21)
[2018-12-09] MEDS: risperiDONE 0.25 MG TABLET (RisperDAL) PO SCH ×2 (09:51→21:21)
[2018-12-09] MEDS: acetaZOLAMIDE 250 MG TABLET (DIAMOX) PO SCH (09:54)
--- NOTE | 2018-12-09 11:42 | NUR ---
RN ROUNDS PT RESTLESS, AND AGITATED. RESTRAINTS IN PLACE. DECREASED STIMULI AND REORIENTING PATIENT. PT STILL REFUSING IV ACCESS, WILL REATTEMPT LATER. Addendum: 12/09/18 at 1458 by Aleisha Hubbard RN WRONG PATIENT ENTRY, DISREGARD
--- NOTE | 2018-12-09 11:50 | NUR ---
RN ROUNDS PT RESTING IN BED, NO ACUTE DISTRESS NOTED, BREATHING EVEN AND UNLABORED.
[2018-12-09 12:00] VITALS: BP_SYST 135
[2018-12-09] MEDS: LEVOFLOXACIN 750 MG TABLET PO SCH (12:13)
--- NOTE | 2018-12-09 13:50 | NUR ---
RN ROUND PATIENT EATING LUNCH, DENIES ANY DISCOMFORT AT THIS TIME, WILL CONTINUE TO MONITOR.
--- NOTE | 2018-12-09 15:15 | NUR ---
DR. FRANKIE AMANDA AT BEDSIDE EXAMINING PATIENT. INFORMED MD THAT PATIENT IS STILL REFUSING IV LINES AND REFUSING LOVENOX SUBQ. TO CONTINUE CURRENT PLAN OF CARE.
[2018-12-09 16:09] VITALS: BP_SYST 111
--- NOTE | 2018-12-09 16:38 | NUR ---
PSYCH CONSULT DR. AC AT BEDSIDE EXAMINING PATIENT.
--- NOTE | 2018-12-09 19:36 | NUR ---
CLOSING NOTE BEDSIDE SBAR REPORT GIVEN TO TELEPHONE OPERATOR RECEPTIONIST RN. PT SITTING AT EDGE OF BED, DENIES ANY DISCOMFORT. PATIENT REMAINS ON 5150 HOLD. PT REFUSING IV ACCESS AT THIS TIME, AWARE. CALL LIGHT WITHIN REACH, BED IN LOW AND LOCKED POSITION WITH BED ALARM ON. PT CARE ENDORSED TO TELEPHONE OPERATOR RECEPTIONIST RN.
[2018-12-09 21:29] VITALS: BP_SYST 143
--- NOTE | 2018-12-09 22:00 | NUR ---
PT ALERT AND ORIENTED THIS 2 , PT IS BEING MONITORED X 2 PT IS ABLE TO TAKE MEDICATION WELL PT HAVE NO COMPLAIN . WILL CONTINUE TO MONITOR FO SAFE.
[2018-12-09] MEDS: LevALBUTEROL HCL 1.25 MG/0.5 ML *CONC.* VIAL.NEB (XOPENEX CONC.) INH SCH (23:00)
--- NOTE | 2018-12-10 | NUR ---
recieved awake ALERT AND ORIENTEDX2 . PT HAVE NO C/O PAIN . NO SOB . PT IS ON ROOM AIR . PT IS A MED- SURG . PT IS A DNR . PT IS BEING MONITORED FOR SAFTY . PT HAVE HEPLOCK PT ABLE TO AMBULATE TO THE BATHROOM . WILL MONITOR PT FOR SAFETY .
--- NOTE | 2018-12-10 04:08 | NUR ---
PT REMAN ALERT AND ORIENTED.NO COMPLAIN OF ANY DISCOMFORT . .
[2018-12-10 05:04] VITALS: BP_SYST 140
[2018-12-10] MEDS: LevALBUTEROL HCL 1.25 MG/0.5 ML *CONC.* VIAL.NEB (XOPENEX CONC.) INH SCH ×3 (07:00→23:00)
--- NOTE | 2018-12-10 07:40 | NUR ---
Opening Note received bedside SBAR report from director of dietary RN, patient resting in bed, respirations even and unlabored on room air, patient denies any pain, no acute distress noted, room close to nurses station, educated patient on use of call light and asked to call for assistance, patient verbalized understanding, call light in reach, bed in low and locked position, bed alarm on, sitter at bedside.
[2018-12-10 08:11] VITALS: BP_SYST 123
[2018-12-10] MEDS: risperiDONE 0.25 MG TABLET (RisperDAL) PO SCH ×2 (08:40→20:49)
[2018-12-10] MEDS: LEVOFLOXACIN 750 MG TABLET PO SCH (08:40)
[2018-12-10] MEDS: amLODIPine BESYLATE 10 MG TABLET PO SCH (08:43)
[2018-12-10] MEDS: DOCUSATE SODIUM 100 MG CAPSULE PO SCH (08:43)
[2018-12-10] MEDS: BENZTROPINE MESYLATE 1 MG TABLET PO SCH ×2 (08:43→20:49)
[2018-12-10] MEDS: acetaZOLAMIDE 250 MG TABLET (DIAMOX) PO SCH (08:43)
[2018-12-10] MEDS: ENOXAPARIN SODIUM 40 MG/0.4 ML SYRINGE SUBCUT SCH (08:43)
--- NOTE | 2018-12-10 09:50 | NUR ---
Notes patient sitting up in bed eating breakfast, tolerating well, patient denies any pain or nausea, sitter at bedside.
--- NOTE | 2018-12-10 11:46 | NUR ---
Ambulated to Bathroom patient ambulated to bathroom, steady gait noted, non-slip footwear in place, voided x1, patient ambulated back to bed, patient resting in bed, sitter at bedside.
[2018-12-10 12:41] VITALS: BP_SYST 128
--- NOTE | 2018-12-10 13:56 | NUR ---
Notes patient resting in bed, respirations even and unlabored on room air, patient denies any pain, no acute distress noted, sitter at bedside.
--- NOTE | 2018-12-10 15:50 | NUR ---
Ambulated to bathroom patient ambulated to bathroom, steady gait noted, non-slip footwear in place, voided x1, patient ambulated to bedside chair, patient sitting in bedside chair, no acute distress noted, call light in reach, sitter at bedside.
[2018-12-10 16:16] VITALS: BP_SYST 139
--- NOTE | 2018-12-10 18:05 | NUR ---
Dinner patient sitting up in bed eating dinner, tolerating well, patient denies any pain or nausea, no acute distress noted, sitter at bedside.
--- NOTE | 2018-12-10 19:12 | NUR ---
Closing Note bedside SBAR report given to receiving RN, patient sitting in bedside chair, respirations even and unlabored on room air, no acute distress noted, room close to nurses station, call light in reach, sitter at bedside, care endorsed to pedicab driver RN.
--- NOTE | 2018-12-10 19:30 | NUR ---
Opening notes Pt alert, awake, calm and watching TV, no acute distress noted. Sitter at bedside. Will continue to monitor.
--- NOTE | 2018-12-10 20:10 | NUR ---
Ambulated to bathroom Pt ambulated to bathroom, steady gait. Says "I'm Ok". Pt had a bowel movement and urinated. Pt walked back to sit in chair, watching TV and calm. Sitter at bedside. To monitor.
[2018-12-10 20:17] VITALS: BP_SYST 150
--- NOTE | 2018-12-10 21:00 | NUR ---
Dr. Cody jones.
--- NOTE | 2018-12-10 23:00 | NUR ---
Rounds Pt in bed sleeping on and off. No acute distress noted. Pt wants lights on. Sitter remains at bedside. Will continue to monitor.
--- NOTE | 2018-12-11 00:23 | NUR ---
Rounds Pt awake, alert, ambulated to the bathroom and voided. Safety measures maintained. Pt refused socks on. Pt sitting in chair. Sitter remains at bedside.
[2018-12-11 01:49] VITALS: BP_SYST 144
--- NOTE | 2018-12-11 03:40 | NUR ---
Ambulated to bathroom Pt awake, alert, ambulated to bathroom w/steady gait. Pt voided. Pt back to bed. Sitter at bedside. Safety measures maintained. To monitor.
--- NOTE | 2018-12-11 06:30 | NUR ---
Closing notes Pt alert, awake, confused. No s/s distress or discomfort noted. Ambulates to bathroom, steady gait. No IV access. Bed low, locked, siderails up x 2. Sitter remains at bedside. To endorse to AM nurse.
[2018-12-11] MEDS: LevALBUTEROL HCL 1.25 MG/0.5 ML *CONC.* VIAL.NEB (XOPENEX CONC.) INH SCH ×3 (07:00→23:00)
--- NOTE | 2018-12-11 07:50 | NUR ---
AM rounds: Awake, oriented to name. Patient gets verbally agitated when asked questions. Safety precautions observed. Call light within reach.
[2018-12-11 08:39] VITALS: BP_SYST 160
[2018-12-11] MEDS: ENOXAPARIN SODIUM 40 MG/0.4 ML SYRINGE SUBCUT SCH (09:00)
[2018-12-11] MEDS: BENZTROPINE MESYLATE 1 MG TABLET PO SCH ×2 (09:00→20:32)
[2018-12-11] MEDS: DOCUSATE SODIUM 100 MG CAPSULE PO SCH (09:00)
[2018-12-11] MEDS: acetaZOLAMIDE 250 MG TABLET (DIAMOX) PO SCH (09:00)
[2018-12-11] MEDS: amLODIPine BESYLATE 10 MG TABLET PO SCH (09:00)
[2018-12-11] MEDS: LEVOFLOXACIN 750 MG TABLET PO SCH (09:14)
[2018-12-11] MEDS: risperiDONE 0.25 MG TABLET (RisperDAL) PO SCH ×2 (09:14→20:32)
--- NOTE | 2018-12-11 09:21 | NUR ---
AM meds: Patient refused am meds. Only agreed to take the levaquin and risperdal. Refused Norvasc, patient states she does not have hypertension.
[2018-12-11 10:26] VITALS: BP_SYST 160
--- NOTE | 2018-12-11 11:30 | NUR ---
ROUNDS: Up on the chair, talking to the empty water bottle.
[2018-12-11 12:59] VITALS: BP_SYST 114
--- NOTE | 2018-12-11 15:00 | NUR ---
Rounds: Sitting at the bedside, Mumbling.
[2018-12-11 16:18] VITALS: BP_SYST 131
--- NOTE | 2018-12-11 16:30 | NUR ---
BRP: Went into the bathroom with steady gait.
--- NOTE | 2018-12-11 18:24 | NUR ---
End of shift: Sitting on the edge of the bed, having dinner and continuously talking. Safety precautions maintained. No change in assessment.
[2018-12-11 20:20] VITALS: BP_SYST 126
--- NOTE | 2018-12-11 20:20 | NUR ---
Opening notes Pt alert, awake, watching. No s/s distress noted. VSS. Safety measures in place. Bed low, locked, side rails upx2. Sitter remains at bedside. To monitor.
--- NOTE | 2018-12-11 20:39 | NUR ---
Pt moved to Room 119-A.
--- NOTE | 2018-12-11 21:50 | NUR ---
Bathroom Pt ambulated to the bathroom, steady gait. Pt urinated. Pt back to bed watching TV. Sitter remains at bedside. To monitor.
--- NOTE | 2018-12-11 23:25 | NUR ---
Rounds Pt asleep, respirations even and unlabored. Bed low, locked, siderails up x 2. Sitter at bedside. To monitor.
[2018-12-12 00:20] VITALS: BP_SYST 125
--- NOTE | 2018-12-12 01:20 | NUR ---
Rounds Pt woke up. Assisted pt to the bathroom, pt voided. Safety precaution maintained. Sitter at bedside. To monitor.
--- NOTE | 2018-12-12 03:30 | NUR ---
Rounds Pt asleep, respirations even and unlabored. No distress noted. Safety precaution maintained. Sitter at bedside. To monitor.
--- NOTE | 2018-12-12 06:00 | NUR ---
Dr. Pavel jones.
--- NOTE | 2018-12-12 06:31 | NUR ---
Closing notes Pt alert, awake, ambulates to the bathroom and voids. No IV access. Safety precaution maintained. Bed low, locked, siderails up x2. Sitter remains at bedside. To endorse to AM nurse.
--- NOTE | 2018-12-12 07:30 | NUR ---
opening note patient is resting in bed, no signs of distress at this time, sitter present, educated fire prevention chief light system and plan of care, no verbal response, no IV access at this time and MD is aware of this, no other needs addressed at this time, fall/safety precautions in place.
[2018-12-12 08:02] VITALS: BP_SYST 121
[2018-12-12] MEDS: DOCUSATE SODIUM 100 MG CAPSULE PO SCH (08:28)
[2018-12-12] MEDS: acetaZOLAMIDE 250 MG TABLET (DIAMOX) PO SCH (08:28)
[2018-12-12] MEDS: amLODIPine BESYLATE 10 MG TABLET PO SCH (08:28)
[2018-12-12] MEDS: ENOXAPARIN SODIUM 40 MG/0.4 ML SYRINGE SUBCUT SCH (08:28)
[2018-12-12] MEDS: BENZTROPINE MESYLATE 1 MG TABLET PO SCH ×2 (08:30→22:05)
[2018-12-12] MEDS: risperiDONE 0.25 MG TABLET (RisperDAL) PO SCH ×2 (08:30→17:00)
--- NOTE | 2018-12-12 09:32 | NUR ---
rounds patient is resting in bed, eyes closed breathing easy and nonlabored, no signs of distress, no needs addressed at this time, fall/safety precautions in place, sitter present.
--- NOTE | 2018-12-12 11:35 | NUR ---
PHILL patient is resting in bed, educated on medication use and side effects, patient verbalized understanding, medication was given late because patient was sleeping and she wanted to wait until she was more awake.
[2018-12-12] MEDS: LEVOFLOXACIN 750 MG TABLET PO SCH (11:36)
[2018-12-12 12:42] VITALS: BP_SYST 117
--- NOTE | 2018-12-12 13:41 | NUR ---
rounds patient is sitting on the edge of the bed, no signs of distress, no needs addressed at this time, fall/safety precautions in place, sitter present.
--- NOTE | 2018-12-12 15:23 | NUR ---
rounds patient is walking around room, cleaning her bed, no signs of distress at this time, no other needs addressed at this time, fall/safety precautions in place.
[2018-12-12 16:40] VITALS: BP_SYST 117
--- NOTE | 2018-12-12 17:22 | NUR ---
patient refused risperdal educated patient on medication use and side effect, patient verbalized understanding but stated that she still did not want to take it.
--- NOTE | 2018-12-12 19:07 | NUR ---
closing note patient is resting in bed, no signs of distress at this time, sitter present, no IV access at this time and MD is aware of this, no other needs addressed at this time, fall/safety precautions in place, will endorse report to noc shift nurse to continue with care, need to follow up with dc planning.
[2018-12-12 20:00] VITALS: BP_SYST 118
--- NOTE | 2018-12-12 22:00 | NUR ---
PT RECIEVED AWAKE ALERT AND ORIENTED . SKIN VITAL SIGN STABLE . PT IS ABLE TO AMBULATE AND AMBULATE TO THE BATH ROUTE . PT IS NOT ON IV INFUSION . PT MEDICATED SCHEDULE
[2018-12-12] MEDS: risperiDONE 1 MG TABLET (RisperDAL) PO SCH (22:05)
[2018-12-12] MEDS: LevALBUTEROL HCL 1.25 MG/0.5 ML *CONC.* VIAL.NEB (XOPENEX CONC.) INH SCH (23:00)
--- NOTE | 2018-12-13 | NUR ---
PT SLEEPING NO COMPLAIN . PN
[2018-12-13 00:08] VITALS: BP_SYST 150
--- NOTE | 2018-12-13 02:00 | NUR ---
PT AWAKE ALERT AND ORIENTED .PT HAVE NO COMPLAIN .
--- NOTE | 2018-12-13 04:00 | NUR ---
PT IS AWAKE ALERT NO ORIENTED X3 VITAL STABLE . PT COMTINUE TO MONITOR PT.
--- NOTE | 2018-12-13 06:00 | NUR ---
PT AWAKE ALERT AND ORIENTED . PT WHATTING FOR BREAKFAST. .
[2018-12-13] MEDS: LevALBUTEROL HCL 1.25 MG/0.5 ML *CONC.* VIAL.NEB (XOPENEX CONC.) INH SCH ×2 (07:00→15:00)
--- NOTE | 2018-12-13 07:35 | NUR ---
OPENING NOTES: RECEIVED PATIENT FROM SHOP LEAD NURSE. PATIENT IS AWAKE AND ALERT x2 LAYING DOWN IN BED. PATIENT IS TOLERATING OXYGEN AT ROOM AIR. SITTER AT BEDSIDE FOR SAFETY. PATIENT DOES NOT HAVE AN IV SITE AT THE MOMENT DUE TO PATIENT REFUSING IV INSERTION. PATIENT IN STABLE CONDITION. SAFETY, FALL AND ASPIRATION PRECAUTIONS ARE IN PLACE. BED LOCKED IN LOWEST POSITION WITH CALL LIGHT IN REACH. WILL CONTINUE TO MONITOR PATIENT FOR ANY CHANGES.
[2018-12-13] MEDS: DOCUSATE SODIUM 100 MG CAPSULE PO SCH (08:08)
[2018-12-13] MEDS: acetaZOLAMIDE 250 MG TABLET (DIAMOX) PO SCH (08:09)
[2018-12-13] MEDS: ENOXAPARIN SODIUM 40 MG/0.4 ML SYRINGE SUBCUT SCH (08:10)
[2018-12-13] MEDS: amLODIPine BESYLATE 10 MG TABLET PO SCH (08:10)
[2018-12-13] MEDS: BENZTROPINE MESYLATE 1 MG TABLET PO SCH (08:11)
[2018-12-13] MEDS: risperiDONE 0.25 MG TABLET (RisperDAL) PO SCH ×2 (08:11→16:32)
[2018-12-13 08:17] VITALS: BP_SYST 126
--- NOTE | 2018-12-13 10:13 | NUR ---
Discharge Planning: DCP followed up on referral sent to [facility]. Per Brett stated Dr Ross aware patient needs to be in a locked unit. [facility] was faxed the referral. DCP to [facility]. Addendum: 12/13/18 at 1143 by Philly Solano DP DCP spoke to Carina at [facility] (a [phone] P [phone]) DCP re-faxed pt referral, patient accepted to [facility]. Addendum: 12/13/18 at 1208 by Philly Solano DP DCP made nurse and CM aware pt accepted to [facility] (f [phone] P [phone]) [facility]. Transportation arrange with [facility] ([phone]) Will Call DC order needed. Patient packet taken to nurse station.
--- NOTE | 2018-12-13 10:30 | NUR ---
OPENING NOTES: RECEIVED PATIENT FROM CONTRACT PROGRAMMER NURSE. PATIENT IS AWAKE AND ALERT x2 LAYING IN BED. PATIENT IS TOLERATING OXYGEN AT ROOM AIR. PATIENT DENIES ANY PAIN AT THE MOMENT. PATIENT IN STABLE CONDITION. WILL CONTINUE TO MONITOR PATIENT FOR ANY CHANGES. Addendum: 12/13/18 at 1042 by Porsche Perales RN PATIENT DOES NOT HAVE AN IV ACCESS DUE TO PATIENT REFUSING ONE. SITTER AT BEDSIDE FOR SAFETY. SAFETY, FALL, AND ASPIRATION PRECAUTIONS ARE IN PLACE. BED LOCKED IN LOWEST POSITION WITH CALL LIGHT IN REACH. Addendum: 12/13/18 at 1042 by Porsche Perales RN VALARIE ROUNDS:
[2018-12-13] MEDS: LEVOFLOXACIN 750 MG TABLET PO SCH (10:44)
--- NOTE | 2018-12-13 12:34 | NUR ---
RN ROUNDS: PATIENT IS AWAKE AND ALERT x3 SITTING UP IN BED EATING LUNCH. SITTER AT BEDSIDE FOR SAFETY. PATIENT IS TOLERATING OXYGEN AT ROOM AIR. PATIENT IS STILL REFUSING TO LET US PUT A NEW IV IN. PATIENT IN STABLE CONDITION. WILL CONTINUE TO MONITOR PATIENT FOR ANY CHANGES.
[2018-12-13 13:11] VITALS: BP_SYST 148
--- NOTE | 2018-12-13 14:15 | NUR ---
RN ROUNDS: PATIENT IS AWAKE AND ALERT x2 SITTING AT THE SIDE OF THE BED. NO SIGNS OF DISTRESS OR SHORTNESS OF BREATH NOTED. SITTER AT BEDSIDE FOR SAFETY. PATIENT IS TOLERATING OXYGEN AT ROOM AIR. PATIENT IN STABLE CONDITION. WILL CONTINUE TO MONITOR PATIENT FOR ANY CHANGES.
[2018-12-13 16:02] VITALS: BP_SYST 124
--- NOTE | 2018-12-13 16:20 | NUR ---
RN ROUNDS: PATIENT IS AWAKE AND ALERT x2 LAYING IN BED. PATIENT DENIES ANY PAIN AT THE MOMENT. SITTER AT BEDSIDE FOR SAFETY. PATIENT TOLERATING OXYGEN AT ROOM AIR. NO SIGNS OF DISTRESS OR SHORTNESS OF BREATH NOTED. PATIENT IN STABLE CONDITION. WILL CONTINUE TO MONITOR PATIENT FOR ANY CHANGES.
[2018-12-13 17:42] VITALS: BP_SYST 124
--- NOTE | 2018-12-13 18:44 | NUR ---
CLOSING NOTES: PATIENT IS AWAKE AND ALERT x2 SITTING IN BED. PATIENT DENIES ANY PAIN AT THE MOMENT. SITTER AT BEDSIDE FOR SAFETY. PATIENT IS TOLERATING OXYGEN AT ROOM AIR. NO SIGNS OF DISTRESS OR SHORTNESS OF BREATH NOTED. PATIENT HAS NO IV ACCESS DUE TO PATIENT REFUSING. [facility] PATIENT IN STABLE CONDITION. SAFETY, FALL AND ASPIRATION PRECAUTIONS REMAINED IN PLACE THROUGHOUT THE SHIFT. BED LOCKED IN LOWEST POSITION WITH CALL LIGHT IN REACH. WILL ENDORSE PATIENT CARE TO ONCOMING CARE PROFESSIONALS NURSE.
[2018-12-13] MEDS: HALOPERIDOL LACTATE 5 MG/ML VIAL IM ONE ×2 (18:59→19:16)
[2018-12-13] MEDS ORDERED: HALOPERIDOL 5 MG TABLET (HALDOL) PO ONE (19:15)
[2018-12-13] MEDS ORDERED: LORazepam 1 MG TABLET PO ONE (19:15)
--- NOTE | 2018-12-13 19:15 | NUR ---
CALLED: DR. DAVID MADE AWARE OF PATIENT BECOMING AGITATED. NEW ORDERS GIVEN.
[2018-12-13] MEDS: risperiDONE 1 MG TABLET (RisperDAL) PO SCH (19:31)
--- NOTE | 2018-12-13 19:50 | NUR ---
Initial note Received report from VALARIE Morrell. Awake, alert & oriented x 3. Sitting at side of bed. No c/o pain or discomfort. Respirations even and unlabored. [facility] Refusing to come with paramedics. Paramedics attempting to convince patient to get on gurney. Will continue to monitor.
== END 2018-12-13 20:05 | DRG 689 ==
LOC: SED 01:36 → SMU 04:08 → STU 12-11 20:49 → SMU 12-11 21:43
PROVIDERS: ADMIT Family Medicine; ATTEND Family Medicine
DX: N39.0 Urinary tract infection, site not specified (principal); G93.41 Metabolic encephalopathy; E87.1 Hypo-osmolality and hyponatremia; F20.9 Schizophrenia, unspecified; I10 Essential (primary) hypertension; J44.9 Chronic obstructive pulmonary disease, unspecified; F31.9 Bipolar disorder, unspecified; M19.90 Unspecified osteoarthritis, unspecified site; G20 Parkinson's disease; F02.80 Dementia in other diseases classified elsewhere, unspecified severity, without behavioral disturbance, psychotic disturbance, mood disturbance, and anxiety; G35 Multiple sclerosis; Z66 Do not resuscitate; Z51.5 Encounter for palliative care; Z87.891 Personal history of nicotine dependence; Z88.0 Allergy status to penicillin; Z79.899 Other long term (current) drug therapy; R40.2243 Coma scale, best verbal response, confused conversation, at hospital admission
CPT/HCPCS: 36415; 80053; 80307; 81000-TC; 83605; 84443-TC; 84484; 85025; 85610-TC; 85730-TC; 87040-TC; 87081; 87086; 93005; 99285; G0482; J0696; J1630; J1650; J7030; J7612

== ENCOUNTER 2020-05-09 17:43 | Emergency (ER) | payer OTHER, MEDICAID ==
[~2020-05-09] VITALS: Ht 152.4 cm; Wt 52.2 kg
[~2020-05-09 17:43] MED LIST changes: +ZOLP5TAB2 PO
[2020-05-09 18:40] VITALS: BP_SYST 121
[2020-05-09 18:54] LABS: BASOPHILS % (AUTO) 0.5 % (0.0-2.0); EOSINOPHILS # (AUTO) 0.3 K/uL (0.0-0.4); EOSINOPHILS % (AUTO) 3.4 % (0.0-4.0); HEMATOCRIT 39.7 % (36-48); HEMOGLOBIN 13.1 g/dL (12.0-16.0); LYMPHOCYTES # (AUTO) 3.8 K/uL (1.0-5.5); LYMPHOCYTES % (AUTO) 41.1 % (20.5-51.5); MEAN CORPUSCULAR HEMOGLOBIN 31 pg (27-31); MEAN CORPUSCULAR HGB CONC 33 % (32-36); MEAN CORPUSCULAR VOLUME 93 fL (79.0-98.0); MONOCYTES # (AUTO) 0.7 K/uL (0.0-1.0); MONOCYTES % (AUTO) 7.6 % (1.7-9.3); NEUTROPHILS # (AUTO) 4.4 K/uL (1.8-7.7); NEUTROPHILS % (AUTO) 47.4 % (40.0-70.0); PLATELET COUNT (AUTO) 286 K/uL (130-430); RED BLOOD CELL COUNT(AUTO) 4.26 MIL/uL (4.2-6.2); RED CELL DISTRIBUTION WIDTH 13.6 % (9.0-15.0); WHITE BLOOD COUNT (AUTO) 9.3 K/uL (4.8-10.8)
[2020-05-09 19:00] LABS: BILIRUBIN,URINE NEGATIVE (NEGATIVE); BLOOD, URINE NEGATIVE (NEGATIVE); CLARITY/URINE OTHER (CLEAR); COLOR,URINE YELLOW (YELLOW); GLUCOSE,URINE NEGATIVE (NEGATIVE); KETONES,URINE NEGATIVE (NEGATIVE); LEUKOCYTE ESTERASE ,URINE 1+ (NEGATIVE); NITRITE, URINE POSITIVE (NEGATIVE); PROTEIN URINE NEGATIVE (NEGATIVE); UROBILINOGEN,URINE 0.2 (0.2-1.0)
[2020-05-09 19:18] LABS: BARBITURATE, URINE NEGATIVE (NEG <=200); BENZODIAZEPINE, URINE NEGATIVE (NEG <=150); CANNABINOID, URINE NEGATIVE (NEG <=50); COCAINE, URINE NEGATIVE (NEG <=150); METHAMPHETAMINES SCREEN,URINE NEGATIVE (NEG <=500); OPIATE, URINE NEGATIVE (NEG <=100); PHENCYCLIDINE SCREEN,URINE NEGATIVE (NEG <=25); UR TRICYCLIC ANTIDEPRESSANTS NEGATIVE (NEG <=300); URINE AMPHETAMINE NEGATIVE (NEG <=500); URINE METHADONE NEGATIVE (NEG <=200); URINE OXYCODONE SCREEN NEGATIVE (NEG <=100); URINE PROPOXYPHENE SCREEN NEGATIVE (NEG <=300)
[2020-05-09 19:36] LABS: CHOLESTEROL 173 mg/dL (<200); HDL CHOLESTEROL 78 mg/dL (>55); LDL CHOLESTEROL 98 mg/dL (<100); TRIGLYCERIDES 60 mg/dL (30-150)
[2020-05-09 20:03] LABS: ALANINE AMINOTRANSFERASE 24 U/L (12-78); ALBUMIN 3.5 g/dL (3.4-4.8); ANION GAP 8 (5-15); ASPARTATE AMINOTRANSFERASE 23 U/L (10-37); CALCIUM 9.2 mg/dL (8.4-11.0); CHLORIDE 103 mmol/L (98-107); CREATININE 0.66 mg/dL (0.55-1.30); GLUCOSE 91 mg/dL (70-99); POTASSIUM 4.3 mmol/L (3.5-5.1); SODIUM SERUM 138 mmol/L (136-145); TOTAL BILIRUBIN 0.3 mg/dL (0.0-1.0); UREA NITROGEN, BLOOD 17 mg/dL (8-21)
[2020-05-09 20:12] LABS: RBC,URINE NONE SEEN /HPF (0-3)
[2020-05-09 20:13] LABS: BACTERIA,URINE None Seen /HPF (None Seen); YEAST,URINE None Seen /HPF (None Seen)
[2020-05-09 20:32] LABS: ACETAMINOPHEN < 1 ug/mL (1-30); ALCOHOL, BLOOD < 3 mg/dL (<10); GFR AFRICAN AMERICAN 114 mL/min (>90)
[2020-05-09] MEDS ORDERED: CEPH500C2 PO (20:41)
[2020-05-09 21:20] VITALS: BP_SYST 121
== END 2020-05-09 21:22 ==
LOC: SED 17:43
DX: N39.0 Urinary tract infection, site not specified (principal); J44.9 Chronic obstructive pulmonary disease, unspecified; I10 Essential (primary) hypertension; G20 Parkinson's disease; Z79.899 Other long term (current) drug therapy; Z88.0 Allergy status to penicillin; Z20.822 Contact with and (suspected) exposure to COVID-19
CPT/HCPCS: 36415; 80053; 80061; 80307; 81000; 82140; 83036; 85025; 87081; 87426; 99285; G0480; G0481; G0482

== ENCOUNTER 2021-09-26 12:08 | Inpatient (IN) | payer OTHER, MEDICAID ==
[2021-09-26] VITALS (7 sets, daily range): BP systolic 103–138
[~2021-09-26] VITALS: Ht 157.5 cm; Wt 78.1 kg
[~2021-09-26 12:08] MED LIST changes: +CEPH-548 PO
[2021-09-26 13:00] LABS: BASOPHILS % (AUTO) 0.1 % (0.0-2.0); EOSINOPHILS # (AUTO) 0.1 K/uL (0.0-0.4); EOSINOPHILS % (AUTO) 0.9 % (0.0-4.0); HEMATOCRIT 46.7 % (36-48); HEMOGLOBIN 15.2 g/dL (12.0-16.0); LYMPHOCYTES # (AUTO) 1.1 K/uL (1.0-5.5); LYMPHOCYTES % (AUTO) 8.8 % (20.5-51.5); MEAN CORPUSCULAR HEMOGLOBIN 32 pg (27-31); MEAN CORPUSCULAR HGB CONC 33 % (32-36); MEAN CORPUSCULAR VOLUME 98 fL (79.0-98.0); MONOCYTES # (AUTO) 0.8 K/uL (0.0-1.0); MONOCYTES % (AUTO) 6.4 % (1.7-9.3); NEUTROPHILS # (AUTO) 10.9 K/uL (1.8-7.7); NEUTROPHILS % (AUTO) 83.8 % (40.0-70.0); PLATELET COUNT (AUTO) 148 K/uL (130-430); RED BLOOD CELL COUNT(AUTO) 4.77 MIL/uL (4.2-6.2); RED CELL DISTRIBUTION WIDTH 14.6 % (9.0-15.0)
[2021-09-26] MEDS ORDERED: IPRATROPIUM BROM 0.5 MG/2.5 ML VIAL.NEB (ATROVENT) INH ONE (13:15)
[2021-09-26] MEDS ORDERED: VANCOMYCIN HCL 1,000 MG in D5W 250 ML IV ONE (13:15)
[2021-09-26] MEDS ORDERED: cefTRIAXone 1 GM in D5W 50 ML IV ONE (13:15)
[2021-09-26] MEDS ORDERED: ALBUTEROL SULFATE 0.083% 2.5 MG/3 ML VIAL.NEB INH ONE (13:15)
[2021-09-26 13:25] LABS: CALCIUM 8.7 mg/dL (8.4-11.0); CHLORIDE 90 mmol/L (98-107); CREATININE 0.56 mg/dL (0.55-1.30); GLUCOSE 179 mg/dL (70-99); POTASSIUM 4.3 mmol/L (3.5-5.1); SODIUM SERUM 133 mmol/L (136-145); UREA NITROGEN, BLOOD 17 mg/dL (8-21)
[2021-09-26 13:32] LABS: ANION GAP -4 (5-15)
[2021-09-26 13:33] LABS: ALANINE AMINOTRANSFERASE 168 U/L (12-78); ALBUMIN 2.6 g/dL (3.4-4.8); ASPARTATE AMINOTRANSFERASE 39 U/L (10-37); TOTAL BILIRUBIN 0.5 mg/dL (0.0-1.0)
[2021-09-26] MEDS ORDERED: cefTRIAXone 1 GM VIAL ONE (13:42)
[2021-09-26] MEDS ORDERED: ASPIRIN 300 MG/SUPP.RECT SUPP RC ONE (14:00)
[2021-09-26] MEDS ORDERED: VANCOMYCIN HCL 1000 MG/VIAL IV ONE (14:11)
[2021-09-26] MEDS ORDERED: NACL 0.9% 1,000 ML IV ONE (14:45)
[2021-09-26] MEDS ORDERED: NOREPINEPHRINE BITARTRATE 4 MG in D5W 246 ML IV PRN (15:15)
[2021-09-26] MEDS ORDERED: NOREPINEPHRINE 4 MG/4 ML VIAL IV ONE (15:16)
[2021-09-26] MEDS ORDERED: NOREPINEPHRINE BITARTRATE 4 MG in NS 246 ML IV PRN (15:45)
[2021-09-26] MEDS ORDERED: methylPREDNISolone SOD SUCC/PF 62.5 MG/ML VIAL ONE (16:06)
[2021-09-26] MEDS ORDERED: methylPREDNISolone SOD SUCC/PF 62.5 MG/ML VIAL IVP ONE (16:15)
[2021-09-26] MEDS ORDERED: LevALBUTEROL HCL 1.25 MG/0.5 ML *CONC.* VIAL.NEB (XOPENEX CONC.) INH PRN (16:15)
[2021-09-26] MEDS ORDERED: ACETAMINOPHEN 650 MG SUPP.RECT RC PRN (16:15)
[2021-09-26] MEDS ORDERED: AZITHROMYCIN 500 MG/VIAL (ZITHROMAX) IV ONE (16:40)
[2021-09-26] MEDS: AZITHROMYCIN 500 MG in NS 250 ML IV SCH (16:44)
[2021-09-26] MEDS: KCL 20 mEq in D5NS 1000 mL 1,000 ML IV SCH (16:44)
[2021-09-26] MEDS: INSULIN REGULAR, HUMAN 100 UNITS/ML, 10 ML VIAL (humuLIN R) SUBCUT PRN (19:27)
[2021-09-26] MEDS: LevALBUTEROL HCL 1.25 MG/0.5 ML *CONC.* VIAL.NEB (XOPENEX CONC.) INH SCH (19:41)
[2021-09-26] MEDS: ENOXAPARIN SODIUM 40 MG/0.4 ML SYRINGE SUBCUT SCH (21:46)
[2021-09-26] MEDS ORDERED: KCL 20 mEq in D5NS 1000 mL 1,000 ML IV ONE (23:08)
[2021-09-27] VITALS (24 sets, daily range): BP systolic 93–155
[2021-09-27] MEDS: methylPREDNISolone SOD SUCC/PF 62.5 MG/ML VIAL IVP SCH ×4 (00:03→18:14)
[2021-09-27] MEDS: INSULIN REGULAR, HUMAN 100 UNITS/ML, 10 ML VIAL (humuLIN R) SUBCUT PRN ×3 (00:19→18:18)
[2021-09-27] MEDS: KCL 20 mEq in D5NS 1000 mL 1,000 ML IV SCH ×3 (03:09→22:44)
[2021-09-27] MEDS: LevALBUTEROL HCL 1.25 MG/0.5 ML *CONC.* VIAL.NEB (XOPENEX CONC.) INH SCH ×4 (03:19→19:35)
[2021-09-27 07:06] LABS: HEMATOCRIT 48.4 % (36-48); HEMOGLOBIN 16.2 g/dL (12.0-16.0); MEAN CORPUSCULAR HEMOGLOBIN 33 pg (27-31); MEAN CORPUSCULAR HGB CONC 34 % (32-36); MEAN CORPUSCULAR VOLUME 98 fL (79.0-98.0); RED BLOOD CELL COUNT(AUTO) 4.95 MIL/uL (4.2-6.2); RED CELL DISTRIBUTION WIDTH 14.6 % (9.0-15.0); WHITE BLOOD COUNT (AUTO) 8.7 K/uL (4.8-10.8)
[2021-09-27 07:15] LABS: PLATELET COUNT (AUTO) 34 K/uL (130-430)
[2021-09-27 07:27] LABS: CALCIUM 8.2 mg/dL (8.4-11.0); CHLORIDE 91 mmol/L (98-107); CREATININE 0.55 mg/dL (0.55-1.30); GLUCOSE 122 mg/dL (70-99); POTASSIUM 4.4 mmol/L (3.5-5.1); SODIUM SERUM 136 mmol/L (136-145); UREA NITROGEN, BLOOD 14 mg/dL (8-21)
[2021-09-27 08:01] LABS: ANION GAP < 3 (5-15)
[2021-09-27 09:19] LABS: BASOPHILS % (AUTO) 0.1 % (0.0-2.0); EOSINOPHILS % (AUTO) 0.1 % (0.0-4.0); LYMPHOCYTES % (AUTO) 2.5 % (20.5-51.5); MONOCYTES % (AUTO) 1.7 % (1.7-9.3); NEUTROPHILS % (AUTO) 95.6 % (40.0-70.0)
[2021-09-27 09:20] LABS: ATYPICAL LYMPHOCYTES % 0 % (0-0); BAND % (MANUAL) 9 % (0-6); BASOPHILS % (MANUAL) 0 % (0-2); EOSINOPHILS % (MANUAL) 0 % (0-7); LYMPHOCYTES % (MANUAL) 6 % (20-46); MONOCYTES % (MANUAL) 3 % (0-11)
[2021-09-27 09:22] LABS: METAMYELOCYTES % 0 % (0-0); MYELOCYTES % 0 % (0-0); PROMYELOCYTES % 0 % (0-0)
[2021-09-27 09:23] LABS: BLASTS, MANUAL % 0 % (0-0); OTHER CELLS,MANUAL % 0 (0-0)
[2021-09-27] MEDS: VANCOMYCIN HCL 1,000 MG in NS 250 ML IV SCH (14:07)
[2021-09-27] MEDS: AZITHROMYCIN 500 MG in NS 250 ML IV SCH (18:13)
[2021-09-27] MEDS: ENOXAPARIN SODIUM 40 MG/0.4 ML SYRINGE SUBCUT SCH (21:00)
[2021-09-27] MEDS: acetaZOLAMIDE 250 MG TABLET (DIAMOX) PO SCH (21:10)
[2021-09-28] VITALS (24 sets, daily range): BP systolic 106–145
[2021-09-28] MEDS: methylPREDNISolone SOD SUCC/PF 62.5 MG/ML VIAL IVP SCH ×4 (00:42→18:43)
[2021-09-28] MEDS: INSULIN REGULAR, HUMAN 100 UNITS/ML, 10 ML VIAL (humuLIN R) SUBCUT PRN ×3 (00:43→18:57)
[2021-09-28] MEDS: LevALBUTEROL HCL 1.25 MG/0.5 ML *CONC.* VIAL.NEB (XOPENEX CONC.) INH SCH ×4 (01:02→20:20)
[2021-09-28 06:52] LABS: PROTHROMBIN TIME 10.6 SECS (9.5-12.5)
[2021-09-28 06:57] LABS: BASOPHILS % (AUTO) 0.1 % (0.0-2.0); HEMATOCRIT 46.3 % (36-48); HEMOGLOBIN 15.2 g/dL (12.0-16.0); LYMPHOCYTES # (AUTO) 0.3 K/uL (1.0-5.5); LYMPHOCYTES % (AUTO) 1.7 % (20.5-51.5); MEAN CORPUSCULAR HEMOGLOBIN 32 pg (27-31); MEAN CORPUSCULAR HGB CONC 33 % (32-36); MEAN CORPUSCULAR VOLUME 97 fL (79.0-98.0); MONOCYTES # (AUTO) 0.4 K/uL (0.0-1.0); MONOCYTES % (AUTO) 2.8 % (1.7-9.3); NEUTROPHILS # (AUTO) 14.1 K/uL (1.8-7.7); NEUTROPHILS % (AUTO) 95.4 % (40.0-70.0); PLATELET COUNT (AUTO) 57 K/uL (130-430); RED BLOOD CELL COUNT(AUTO) 4.76 MIL/uL (4.2-6.2); RED CELL DISTRIBUTION WIDTH 14.2 % (9.0-15.0); WHITE BLOOD COUNT (AUTO) 14.7 K/uL (4.8-10.8)
[2021-09-28 06:58] LABS: TOTAL IRON BIND. CAPACITY 259 ug/dL (250-450)
[2021-09-28] MEDS: KCL 20 mEq in D5NS 1000 mL 1,000 ML IV SCH ×2 (09:08→18:30)
[2021-09-28] MEDS: acetaZOLAMIDE 250 MG TABLET (DIAMOX) PO SCH ×2 (09:08→21:36)
[2021-09-28] MEDS: VANCOMYCIN HCL 1,000 MG in NS 250 ML IV SCH (14:33)
[2021-09-28] MEDS: AZITHROMYCIN 500 MG in NS 250 ML IV SCH (18:43)
[2021-09-28] MEDS: ENOXAPARIN SODIUM 40 MG/0.4 ML SYRINGE SUBCUT SCH (21:00)
[2021-09-29] VITALS (25 sets, daily range): BP systolic 90–155
[2021-09-29] MEDS: methylPREDNISolone SOD SUCC/PF 62.5 MG/ML VIAL IVP SCH ×5 (00:24→23:36)
[2021-09-29] MEDS: INSULIN REGULAR, HUMAN 100 UNITS/ML, 10 ML VIAL (humuLIN R) SUBCUT PRN ×3 (00:26→23:37)
[2021-09-29] MEDS: LevALBUTEROL HCL 1.25 MG/0.5 ML *CONC.* VIAL.NEB (XOPENEX CONC.) INH SCH ×4 (01:38→19:11)
[2021-09-29] MEDS: KCL 20 mEq in D5NS 1000 mL 1,000 ML IV SCH ×3 (04:05→23:36)
[2021-09-29 06:24] LABS: BASOPHILS % (AUTO) 0.1 % (0.0-2.0); HEMATOCRIT 48.2 % (36-48); HEMOGLOBIN 15.9 g/dL (12.0-16.0); LYMPHOCYTES # (AUTO) 0.2 K/uL (1.0-5.5); LYMPHOCYTES % (AUTO) 1.1 % (20.5-51.5); MEAN CORPUSCULAR HEMOGLOBIN 32 pg (27-31); MEAN CORPUSCULAR HGB CONC 33 % (32-36); MEAN CORPUSCULAR VOLUME 98 fL (79.0-98.0); MONOCYTES # (AUTO) 0.3 K/uL (0.0-1.0); MONOCYTES % (AUTO) 1.8 % (1.7-9.3); NEUTROPHILS # (AUTO) 15.4 K/uL (1.8-7.7); PLATELET COUNT (AUTO) 62 K/uL (130-430); RED CELL DISTRIBUTION WIDTH 14.6 % (9.0-15.0); WHITE BLOOD COUNT (AUTO) 15.9 K/uL (4.8-10.8)
[2021-09-29] MEDS: acetaZOLAMIDE 250 MG TABLET (DIAMOX) PO SCH ×2 (08:01→20:40)
[2021-09-29 08:09] LABS: FOLATE (FOLIC ACID) 10.8 ng/mL (>3.0)
[2021-09-29] MEDS ORDERED: FUROSEMIDE 20 MG/2 ML VIAL IVP ONE (11:00)
[2021-09-29] MEDS: VANCOMYCIN HCL 1,000 MG in NS 250 ML IV SCH (14:24)
[2021-09-29] MEDS: AZITHROMYCIN 500 MG in NS 250 ML IV SCH (17:49)
[2021-09-29] MEDS: POTASSIUM CHLORIDE 10 MEQ TAB.PRT.SR PO SCH (20:40)
[2021-09-29] MEDS: ENOXAPARIN SODIUM 40 MG/0.4 ML SYRINGE SUBCUT SCH (20:40)
[2021-09-29] MEDS: FUROSEMIDE 20 MG/2 ML VIAL IVP SCH (20:41)
[2021-09-30] VITALS (17 sets, daily range): BP systolic 119–148
[2021-09-30] MEDS: LevALBUTEROL HCL 1.25 MG/0.5 ML *CONC.* VIAL.NEB (XOPENEX CONC.) INH SCH ×3 (00:04→19:24)
[2021-09-30] MEDS: VANCOMYCIN HCL 1,000 MG in NS 250 ML IV SCH ×2 (01:30→13:33)
[2021-09-30] MEDS: methylPREDNISolone SOD SUCC/PF 62.5 MG/ML VIAL IVP SCH ×3 (05:42→18:26)
[2021-09-30] MEDS: INSULIN REGULAR, HUMAN 100 UNITS/ML, 10 ML VIAL (humuLIN R) SUBCUT PRN ×2 (05:43→12:26)
[2021-09-30 06:30] LABS: BASOPHILS % (AUTO) 0.2 % (0.0-2.0); HEMATOCRIT 47.1 % (36-48); HEMOGLOBIN 15.6 g/dL (12.0-16.0); LYMPHOCYTES # (AUTO) 0.3 K/uL (1.0-5.5); LYMPHOCYTES % (AUTO) 1.8 % (20.5-51.5); MEAN CORPUSCULAR HEMOGLOBIN 32 pg (27-31); MEAN CORPUSCULAR HGB CONC 33 % (32-36); MEAN CORPUSCULAR VOLUME 97 fL (79.0-98.0); MONOCYTES # (AUTO) 0.4 K/uL (0.0-1.0); MONOCYTES % (AUTO) 3.1 % (1.7-9.3); NEUTROPHILS # (AUTO) 13.6 K/uL (1.8-7.7); NEUTROPHILS % (AUTO) 94.9 % (40.0-70.0); RED BLOOD CELL COUNT(AUTO) 4.84 MIL/uL (4.2-6.2); RED CELL DISTRIBUTION WIDTH 14.2 % (9.0-15.0); WHITE BLOOD COUNT (AUTO) 14.3 K/uL (4.8-10.8)
[2021-09-30 07:39] LABS: PLATELET COUNT (AUTO) 47 K/uL (130-430)
[2021-09-30] MEDS: POTASSIUM CHLORIDE 10 MEQ TAB.PRT.SR PO SCH ×2 (09:00→21:31)
[2021-09-30] MEDS: acetaZOLAMIDE 250 MG TABLET (DIAMOX) PO SCH ×2 (09:00→21:30)
[2021-09-30] MEDS: FUROSEMIDE 20 MG/2 ML VIAL IVP SCH ×2 (09:00→21:34)
[2021-09-30 09:53] LABS: ANION GAP 3 (5-15); CALCIUM 8.3 mg/dL (8.4-11.0); CHLORIDE 96 mmol/L (98-107); CREATININE 0.72 mg/dL (0.55-1.30); GLUCOSE 231 mg/dL (70-99); POTASSIUM 4.1 mmol/L (3.5-5.1); SODIUM SERUM 135 mmol/L (136-145); UREA NITROGEN, BLOOD 15 mg/dL (8-21)
[2021-09-30] MEDS: KCL 20 mEq in D5NS 1000 mL 1,000 ML IV SCH ×2 (10:41→21:34)
[2021-09-30] MEDS: AZITHROMYCIN 500 MG in NS 250 ML IV SCH (18:27)
[2021-09-30] MEDS: ENOXAPARIN SODIUM 40 MG/0.4 ML SYRINGE SUBCUT SCH (21:28)
[2021-10-01] MEDS: methylPREDNISolone SOD SUCC/PF 62.5 MG/ML VIAL IVP SCH ×5 (00:01→20:53)
[2021-10-01] MEDS: VANCOMYCIN HCL 1,000 MG in NS 250 ML IV SCH ×2 (00:02→13:36)
[2021-10-01] MEDS: INSULIN REGULAR, HUMAN 100 UNITS/ML, 10 ML VIAL (humuLIN R) SUBCUT PRN ×4 (00:05→23:25)
[2021-10-01] MEDS: LevALBUTEROL HCL 1.25 MG/0.5 ML *CONC.* VIAL.NEB (XOPENEX CONC.) INH SCH ×4 (01:37→22:39)
[2021-10-01] MEDS: KCL 20 mEq in D5NS 1000 mL 1,000 ML IV SCH ×2 (04:23→08:58)
[2021-10-01 08:00] VITALS: BP_SYST 131
[2021-10-01] MEDS: POTASSIUM CHLORIDE 10 MEQ TAB.PRT.SR PO SCH ×2 (08:50→20:53)
[2021-10-01] MEDS: FUROSEMIDE 20 MG/2 ML VIAL IVP SCH ×2 (08:51→20:52)
[2021-10-01] MEDS: acetaZOLAMIDE 250 MG TABLET (DIAMOX) PO SCH ×2 (11:37→20:53)
[2021-10-01 12:00] VITALS: BP_SYST 135
[2021-10-01 16:00] VITALS: BP_SYST 138
[2021-10-01 16:10] LABS: BILIRUBIN,URINE NEGATIVE (NEGATIVE); BLOOD, URINE 3+ (NEGATIVE); CLARITY/URINE SL CLOUDY (CLEAR); COLOR,URINE YELLOW (YELLOW); GLUCOSE,URINE 3+ (NEGATIVE); KETONES,URINE NEGATIVE (NEGATIVE); LEUKOCYTE ESTERASE ,URINE NEGATIVE (NEGATIVE); NITRITE, URINE NEGATIVE (NEGATIVE); PROTEIN URINE 1+ (NEGATIVE)
[2021-10-01 16:29] LABS: BACTERIA,URINE None Seen /HPF (None Seen); RBC,URINE >100 /HPF (0-3); WBC,URINE 0-3 /HPF (0-3)
[2021-10-01 16:30] LABS: MUCUS,URINE 1+ /LPF (None Seen)
[2021-10-01 19:00] VITALS: BP_SYST 136
[2021-10-01 20:00] VITALS: BP_SYST 136
[2021-10-01] MEDS: ENOXAPARIN SODIUM 40 MG/0.4 ML SYRINGE SUBCUT SCH ×2 (20:54→21:00)
[2021-10-02] VITALS: BP_SYST 132
[2021-10-02] MEDS: VANCOMYCIN HCL 1,000 MG in NS 250 ML IV SCH ×2 (01:14→15:14)
[2021-10-02] MEDS: KCL 20 mEq in D5NS 1000 mL 1,000 ML IV SCH ×3 (01:15→22:30)
[2021-10-02] MEDS: LevALBUTEROL HCL 1.25 MG/0.5 ML *CONC.* VIAL.NEB (XOPENEX CONC.) INH SCH ×3 (04:17→13:44)
[2021-10-02] MEDS: INSULIN REGULAR, HUMAN 100 UNITS/ML, 10 ML VIAL (humuLIN R) SUBCUT PRN ×3 (05:16→18:27)
[2021-10-02 06:09] LABS: HEMATOCRIT 45.5 % (36-48); HEMOGLOBIN 14.8 g/dL (12.0-16.0); LYMPHOCYTES # (AUTO) 0.3 K/uL (1.0-5.5); MEAN CORPUSCULAR HEMOGLOBIN 32 pg (27-31); MEAN CORPUSCULAR HGB CONC 33 % (32-36); MEAN CORPUSCULAR VOLUME 98 fL (79.0-98.0); MONOCYTES # (AUTO) 0.5 K/uL (0.0-1.0); MONOCYTES % (AUTO) 3.6 % (1.7-9.3); NEUTROPHILS # (AUTO) 12.4 K/uL (1.8-7.7); NEUTROPHILS % (AUTO) 94.4 % (40.0-70.0); PLATELET COUNT (AUTO) 69 K/uL (130-430); RED BLOOD CELL COUNT(AUTO) 4.66 MIL/uL (4.2-6.2); RED CELL DISTRIBUTION WIDTH 14.6 % (9.0-15.0); WHITE BLOOD COUNT (AUTO) 13.2 K/uL (4.8-10.8)
[2021-10-02 06:38] LABS: CALCIUM 8.1 mg/dL (8.4-11.0); CHLORIDE 96 mmol/L (98-107); CREATININE 0.58 mg/dL (0.55-1.30); GLUCOSE 175 mg/dL (70-99); SODIUM SERUM 132 mmol/L (136-145); UREA NITROGEN, BLOOD 20 mg/dL (8-21)
[2021-10-02 07:40] LABS: ANION GAP < 3 (5-15)
[2021-10-02 08:00] VITALS: BP_SYST 121
[2021-10-02] MEDS: FUROSEMIDE 20 MG/2 ML VIAL IVP SCH ×2 (10:44→22:08)
[2021-10-02] MEDS: acetaZOLAMIDE 250 MG TABLET (DIAMOX) PO SCH (10:45)
[2021-10-02] MEDS: POTASSIUM CHLORIDE 10 MEQ TAB.PRT.SR PO SCH ×2 (10:45→22:09)
[2021-10-02] MEDS: methylPREDNISolone SOD SUCC/PF 62.5 MG/ML VIAL IVP SCH ×2 (10:45→22:08)
[2021-10-02 12:00] VITALS: BP_SYST 131
[2021-10-03] MEDS: LevALBUTEROL HCL 1.25 MG/0.5 ML *CONC.* VIAL.NEB (XOPENEX CONC.) INH SCH ×5 (00:49→22:17)
[2021-10-03 00:55] VITALS: BP_SYST 113
[2021-10-03] MEDS: VANCOMYCIN HCL 1,000 MG in NS 250 ML IV SCH ×2 (02:00→12:48)
[2021-10-03] MEDS: INSULIN REGULAR, HUMAN 100 UNITS/ML, 10 ML VIAL (humuLIN R) SUBCUT PRN ×4 (07:11→17:50)
[2021-10-03 08:00] VITALS: BP_SYST 112
[2021-10-03 09:09] VITALS: BP_SYST 112
[2021-10-03] MEDS: FUROSEMIDE 20 MG/2 ML VIAL IVP SCH ×2 (10:19→22:00)
[2021-10-03] MEDS: methylPREDNISolone SOD SUCC/PF 62.5 MG/ML VIAL IVP SCH (10:19)
[2021-10-03] MEDS: POTASSIUM CHLORIDE 10 MEQ TAB.PRT.SR PO SCH ×2 (10:20→22:00)
[2021-10-03] MEDS: acetaZOLAMIDE 250 MG TABLET (DIAMOX) PO SCH (10:26)
[2021-10-03 12:05] VITALS: BP_SYST 115
[2021-10-03 16:16] VITALS: BP_SYST 113
[2021-10-03] MEDS: KCL 20 mEq in D5NS 1000 mL 1,000 ML IV SCH ×2 (18:40→18:42)
[2021-10-03 21:15] VITALS: BP_SYST 159
[2021-10-03] MEDS: ENOXAPARIN SODIUM 40 MG/0.4 ML SYRINGE SUBCUT SCH (22:00)
[2021-10-04 01:23] VITALS: BP_SYST 141
[2021-10-04] MEDS: VANCOMYCIN HCL 1,000 MG in NS 250 ML IV SCH ×2 (02:00→14:16)
[2021-10-04] MEDS: LevALBUTEROL HCL 1.25 MG/0.5 ML *CONC.* VIAL.NEB (XOPENEX CONC.) INH SCH ×4 (03:12→19:54)
[2021-10-04] MEDS: KCL 20 mEq in D5NS 1000 mL 1,000 ML IV SCH ×2 (07:20→18:08)
[2021-10-04 08:00] VITALS: BP_SYST 127
[2021-10-04 08:03] LABS: BASOPHILS % (AUTO) 0.2 % (0.0-2.0); EOSINOPHILS # (AUTO) 0.1 K/uL (0.0-0.4); EOSINOPHILS % (AUTO) 0.7 % (0.0-4.0); HEMOGLOBIN 15.9 g/dL (12.0-16.0); LYMPHOCYTES # (AUTO) 1.1 K/uL (1.0-5.5); LYMPHOCYTES % (AUTO) 7.4 % (20.5-51.5); MEAN CORPUSCULAR HEMOGLOBIN 32 pg (27-31); MEAN CORPUSCULAR HGB CONC 33 % (32-36); MEAN CORPUSCULAR VOLUME 97 fL (79.0-98.0); MONOCYTES # (AUTO) 1.1 K/uL (0.0-1.0); MONOCYTES % (AUTO) 7.3 % (1.7-9.3); NEUTROPHILS # (AUTO) 12.5 K/uL (1.8-7.7); NEUTROPHILS % (AUTO) 84.4 % (40.0-70.0); PLATELET COUNT (AUTO) 123 K/uL (130-430); RED BLOOD CELL COUNT(AUTO) 4.96 MIL/uL (4.2-6.2); RED CELL DISTRIBUTION WIDTH 14.4 % (9.0-15.0); WHITE BLOOD COUNT (AUTO) 14.9 K/uL (4.8-10.8)
[2021-10-04] MEDS: predniSONE 20 MG TABLET PO SCH (09:38)
[2021-10-04] MEDS: POTASSIUM CHLORIDE 10 MEQ TAB.PRT.SR PO SCH (09:40)
[2021-10-04] MEDS: acetaZOLAMIDE 250 MG TABLET (DIAMOX) PO SCH (09:41)
[2021-10-04] MEDS: FUROSEMIDE 20 MG/2 ML VIAL IVP SCH (09:41)
[2021-10-04 12:00] VITALS: BP_SYST 132
[2021-10-04] MEDS: INSULIN REGULAR, HUMAN 100 UNITS/ML, 10 ML VIAL (humuLIN R) SUBCUT PRN ×2 (12:32→18:12)
[2021-10-04 16:00] VITALS: BP_SYST 124
[2021-10-05] MEDS: LevALBUTEROL HCL 1.25 MG/0.5 ML *CONC.* VIAL.NEB (XOPENEX CONC.) INH SCH ×4 (01:16→20:49)
[2021-10-05 06:48] LABS: BASOPHILS % (AUTO) 0.1 % (0.0-2.0); EOSINOPHILS # (AUTO) 0.1 K/uL (0.0-0.4); EOSINOPHILS % (AUTO) 1.1 % (0.0-4.0); HEMATOCRIT 43.8 % (36-48); HEMOGLOBIN 14.5 g/dL (12.0-16.0); LYMPHOCYTES # (AUTO) 1.2 K/uL (1.0-5.5); LYMPHOCYTES % (AUTO) 9.4 % (20.5-51.5); MEAN CORPUSCULAR HEMOGLOBIN 32 pg (27-31); MEAN CORPUSCULAR HGB CONC 33 % (32-36); MEAN CORPUSCULAR VOLUME 97 fL (79.0-98.0); MONOCYTES % (AUTO) 8.2 % (1.7-9.3); NEUTROPHILS # (AUTO) 10.1 K/uL (1.8-7.7); NEUTROPHILS % (AUTO) 81.2 % (40.0-70.0); PLATELET COUNT (AUTO) 120 K/uL (130-430); RED BLOOD CELL COUNT(AUTO) 4.52 MIL/uL (4.2-6.2); RED CELL DISTRIBUTION WIDTH 14.4 % (9.0-15.0); WHITE BLOOD COUNT (AUTO) 12.4 K/uL (4.8-10.8)
[2021-10-05 07:26] LABS: ALANINE AMINOTRANSFERASE 45 U/L (12-78); ALBUMIN 2.2 g/dL (3.4-4.8); ASPARTATE AMINOTRANSFERASE 17 U/L (10-37); CALCIUM 7.8 mg/dL (8.4-11.0); CHLORIDE 99 mmol/L (98-107); CREATININE 0.44 mg/dL (0.55-1.30); GLUCOSE 109 mg/dL (70-99); SODIUM SERUM 134 mmol/L (136-145); TOTAL BILIRUBIN 0.9 mg/dL (0.0-1.0); UREA NITROGEN, BLOOD 15 mg/dL (8-21)
[2021-10-05 07:56] LABS: ANION GAP < 3 (5-15)
[2021-10-05 08:00] VITALS: BP_SYST 133
[2021-10-05] MEDS: POTASSIUM CHLORIDE 10 MEQ TAB.PRT.SR PO SCH ×3 (09:00→22:29)
[2021-10-05] MEDS: FUROSEMIDE 20 MG/2 ML VIAL IVP SCH ×3 (09:00→22:28)
[2021-10-05] MEDS: predniSONE 20 MG TABLET PO SCH ×3 (09:00→22:29)
[2021-10-05] MEDS: KCL 20 mEq in D5NS 1000 mL 1,000 ML IV SCH ×2 (10:30→15:15)
[2021-10-05 10:53] VITALS: BP_SYST 133
[2021-10-05 12:00] VITALS: BP_SYST 125
[2021-10-05] MEDS: INSULIN REGULAR, HUMAN 100 UNITS/ML, 10 ML VIAL (humuLIN R) SUBCUT PRN ×2 (12:43→17:53)
[2021-10-05] MEDS: VANCOMYCIN HCL 1,000 MG in NS 250 ML IV SCH ×2 (15:30→15:40)
[2021-10-05 16:00] VITALS: BP_SYST 133
[2021-10-05] MEDS: acetaZOLAMIDE 250 MG TABLET (DIAMOX) PO SCH (16:56)
[2021-10-05 20:00] VITALS: BP_SYST 120
[2021-10-05] MEDS: ENOXAPARIN SODIUM 40 MG/0.4 ML SYRINGE SUBCUT SCH (22:29)
[2021-10-06] VITALS (7 sets, daily range): BP systolic 105–132
[2021-10-06] MEDS: KCL 20 mEq in D5NS 1000 mL 1,000 ML IV SCH ×2 (00:02→06:30)
[2021-10-06] MEDS: ENOXAPARIN SODIUM 40 MG/0.4 ML SYRINGE SUBCUT SCH ×2 (00:04→20:45)
[2021-10-06] MEDS: LevALBUTEROL HCL 1.25 MG/0.5 ML *CONC.* VIAL.NEB (XOPENEX CONC.) INH SCH ×4 (02:45→19:57)
[2021-10-06] MEDS: VANCOMYCIN HCL 1,000 MG in NS 250 ML IV SCH ×2 (03:39→15:55)
[2021-10-06 06:59] LABS: BASOPHILS % (AUTO) 0.1 % (0.0-2.0); EOSINOPHILS % (AUTO) 0.1 % (0.0-4.0); HEMATOCRIT 43.4 % (36-48); HEMOGLOBIN 14.8 g/dL (12.0-16.0); LYMPHOCYTES # (AUTO) 0.3 K/uL (1.0-5.5); LYMPHOCYTES % (AUTO) 2.7 % (20.5-51.5); MEAN CORPUSCULAR HEMOGLOBIN 33 pg (27-31); MEAN CORPUSCULAR HGB CONC 34 % (32-36); MEAN CORPUSCULAR VOLUME 96 fL (79.0-98.0); MONOCYTES # (AUTO) 0.4 K/uL (0.0-1.0); MONOCYTES % (AUTO) 2.9 % (1.7-9.3); NEUTROPHILS # (AUTO) 11.7 K/uL (1.8-7.7); NEUTROPHILS % (AUTO) 94.2 % (40.0-70.0); PLATELET COUNT (AUTO) 91 K/uL (130-430); RED BLOOD CELL COUNT(AUTO) 4.54 MIL/uL (4.2-6.2); RED CELL DISTRIBUTION WIDTH 14.3 % (9.0-15.0); WHITE BLOOD COUNT (AUTO) 12.5 K/uL (4.8-10.8)
[2021-10-06] MEDS: INSULIN REGULAR, HUMAN 100 UNITS/ML, 10 ML VIAL (humuLIN R) SUBCUT PRN ×3 (07:00→18:06)
[2021-10-06 07:57] LABS: ANION GAP 0 (5-15); CALCIUM 8.2 mg/dL (8.4-11.0); CHLORIDE 93 mmol/L (98-107); CREATININE 0.49 mg/dL (0.55-1.30); GLUCOSE 228 mg/dL (70-99); POTASSIUM 4.2 mmol/L (3.5-5.1); SODIUM SERUM 128 mmol/L (136-145); UREA NITROGEN, BLOOD 16 mg/dL (8-21)
[2021-10-06] MEDS: predniSONE 20 MG TABLET PO SCH ×2 (08:44→22:29)
[2021-10-06] MEDS: acetaZOLAMIDE 250 MG TABLET (DIAMOX) PO SCH (08:44)
[2021-10-06] MEDS: POTASSIUM CHLORIDE 10 MEQ TAB.PRT.SR PO SCH ×2 (08:44→20:36)
[2021-10-06] MEDS: FUROSEMIDE 20 MG/2 ML VIAL IVP SCH (11:21)
== END 2021-10-06 23:28 | DRG 193 ==
LOC: SED 12:08 → SIC 14:02 → STU 09-30 18:18
PROVIDERS: ADMIT Family Medicine; ATTEND Family Medicine
PROC: 5A09457 Assistance with Respiratory Ventilation, 24-96 Consecutive Hours, Continuous Positive Airway Pressure (ICD-10-PCS; principal; 2021-09-26)
PROC: 5A09357 Assistance with Respiratory Ventilation, Less than 24 Consecutive Hours, Continuous Positive Airway Pressure (ICD-10-PCS; 2021-09-29)
PROC: 5A09557 Assistance with Respiratory Ventilation, Greater than 96 Consecutive Hours, Continuous Positive Airway Pressure (ICD-10-PCS; 2021-10-01)
DX: J18.9 Pneumonia, unspecified organism (principal); J96.01 Acute respiratory failure with hypoxia; J96.02 Acute respiratory failure with hypercapnia; J44.1 Chronic obstructive pulmonary disease with (acute) exacerbation; J44.0 Chronic obstructive pulmonary disease with (acute) lower respiratory infection; F20.9 Schizophrenia, unspecified; I11.0 Hypertensive heart disease with heart failure; I50.9 Heart failure, unspecified; Z20.822 Contact with and (suspected) exposure to COVID-19; F03.90 Unspecified dementia, unspecified severity, without behavioral disturbance, psychotic disturbance, mood disturbance, and anxiety; E11.9 Type 2 diabetes mellitus without complications; D69.6 Thrombocytopenia, unspecified; Z87.891 Personal history of nicotine dependence
CPT/HCPCS: 36415; 36600; 71045; 80048; 80053; 80202; 81000; 82607; 82728; 82746; 82803-TC; 82810-TC; 82962; 83540; 83550; 83605; 83735; 83880; 84484; 85007; 85025; 85027; 85384; 85610-TC; 85730-TC; 86022; 87040; 87081; 93005; 93970; 94640; 94660; 94760; 96365; 96367; 97110-GP; 97116-GP; 97530-GP; 99285; G0378; J0456; J0696; J1650; J1815; J1940; J2930; J3370; J7050; J7060; J7512; J7612; J7613; U0003